=== PATIENT | male | born 2000 | race Caucasian/White ===

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

== ENCOUNTER 2020-04-24 08:59 | Day surgery (SDC) | payer OTHER ==
[2020-04-20 11:09] VITALS: BMI 35.9
[~2020-04-24 08:59] MED LIST: LACTATED RINGERS 1,000 ML IV SCH; LIDOCAINE 1% (10MG/ML) FOR IV START INTRADERMA PRN
[2020-04-24 09:16] VITALS: TEMP 97.8
[2020-04-24] MEDS ORDERED: LACTATED RINGERS 1,000 ML IV ONE ×2 (09:16)
[2020-04-24] MEDS ORDERED: PROPOFOL 10 MG/ML 20 ML VIAL IV ONE (09:56)
[2020-04-24] MEDS ORDERED: LIDOCAINE 1% INJ 10MG/ML (20 ML MDV) ONE (09:56)
--- NOTE | 2020-04-24 10:19 | P.PCN ---
Date of Procedure: 04/24/20 Procedure(s) Performed: PREOPERATIVE DIAGNOSIS: Change in bowel habits, diverticulitis POSTOPERATIVE DIAGNOSIS: Diverticulitis PROCEDURE: Colonoscopy ANESTHESIA: MAC SURGEON: Celso Harmon M.D. SPECIMENS: None ENDOSCOPIC PROCEDURE: The patient was placed on the endoscopy table in the left decubitus position. The Olympus colonoscope was inserted into the anus and passed under direct visualization to the base of the cecum. The appendiceal orifice was visualized. From that point the scope was slowly withdrawn inspecting all surfaces carefully. There were no neoplastic or polypoid lesions throughout the cecum, ascending, transverse, descending, sigmoid and rectum. In the sigmoid colon there was diverticulosis with some luminal narrowing. There were mild inflammatory changes consistent with subacute diverticulitis. The remainder of the rectum appeared normal. Digital rectal examination was normal. The patient was taken to the recovery room in stable condition per anesthesia guidelines. RECOMMENDATIONS: Resume diet. Recommend patient proceed with elective sigmoid resection.
[2020-04-24 10:44] VITALS: PULSE 69
[2020-04-24 10:53] VITALS: BP 115/76; RESP 20
== END 2020-04-24 11:11 | disposition home or self-care (01) ==
LOC: ORWHC2ENDO 08:59
PROVIDERS: ATTEND Surgery
DX: K57.32 Diverticulitis of large intestine without perforation or abscess without bleeding (principal); F32.9 Major depressive disorder, single episode, unspecified; F90.9 Attention-deficit hyperactivity disorder, unspecified type; F17.290 Nicotine dependence, other tobacco product, uncomplicated; Z87.19 Personal history of other diseases of the digestive system; Z91.041 Radiographic dye allergy status; Z91.030 Bee allergy status; Z88.0 Allergy status to penicillin; Z79.899 Other long term (current) drug therapy; Z79.2 Long term (current) use of antibiotics; Z79.52 Long term (current) use of systemic steroids; Z98.890 Other specified postprocedural states
CPT/HCPCS: 45378; J2001; J2704

== ENCOUNTER → 2022-02-01 | Outpatient (CLI) | payer BC ==
[2022-02-01 16:36] LABS: Anion Gap 8.8 mmol/L (10.00-18.00); Carbon Dioxide 28.2 mmol/L (20.0-27.5); Potassium 4.5 mmol/L (3.5-5.5)
[2022-02-01 16:48] LABS: Basophils # (A) 0.03 X 10*3/uL (0.00-0.10); Basophils % (A) 0.6 %; Eosinophils # (A) 0.15 X 10*3/uL (0.04-0.35); HCT 45.7 % (39.6-50.0); HGB 15.2 g/dL (13.0-17.0); Immature Grans, Automated 0.4 %; Lymphocytes # (A) 1.81 X 10*3/uL (0.90-5.00); Lymphocytes % (A) 36.1 %; MCH 29.4 pg (27.0-32.0); MCHC 33.3 g/dL (32.0-37.0); MCV 88.4 fL (80.0-97.0); Mean Platelet Volume 9.8 fL (9.5-12.2); Monocytes # (A) 0.37 X 10*3/uL (0.20-1.00); Monocytes % (A) 7.4 %; NRBC Per 100 WBC 0 /100 WBCS (0.0-0.0); Neutrophils # (A) 2.64 X 10*3/uL (1.80-7.70); Neutrophils % (A) 52.5 %; Platelet Count 257 X 10*3/uL (140-440); RBC 5.17 X 10*6/uL (4.40-5.60); RDW 12.4 % (11.5-14.5); WBC 5.02 X 10*3/uL (4.50-10.00)
== END | disposition home or self-care (01) ==
LOC: LABPAT 10:17
PROVIDERS: ATTEND Surgery
DX: Z01.812 Encounter for preprocedural laboratory examination (principal); K57.32 Diverticulitis of large intestine without perforation or abscess without bleeding
CPT/HCPCS: 80051; 85025

== ENCOUNTER 2022-02-03 07:13 | Inpatient (IN) | payer BC ==
[~2022-02-03 07:13] MED LIST changes: +ACETAMINOPHEN TAB 500 MG TAB PO PRN; +HEPARIN SODIUM,PORCINE/PF 5,000 UNIT/0.5 ML SYRINGE SQ PRN; -LACTATED RINGERS 1,000 ML IV SCH; -LIDOCAINE 1% (10MG/ML) FOR IV START INTRADERMA PRN; +metroNIDAZOLE-NS PMX 500 MG in SALINE 1 100ML.BAG IVPB PRN
[2022-02-03] MEDS ORDERED: LIDOCAINE 1% (10MG/ML) FOR IV START INTRADERMA PRN (07:43)
[2022-02-03] MEDS ORDERED: LACTATED RINGERS 1,000 ML IV SCH (07:43)
[2022-02-03 08:07] LABS: Glucose,Whole Blood 145 mg/dL (70-110)
[2022-02-03] MEDS: LACTATED RINGERS 1,000 ML IV SCH ×2 (08:09→09:46)
[2022-02-03] MEDS: ONDANSETRON 4 MG/2 ML VIAL IVP ONE ×2 (08:18→13:44)
[2022-02-03] MEDS: DEXAMETHASONE SOD PHOSPHATE 4 MG/ML 1 ML VIAL IV ONE ×2 (08:18→13:43)
[2022-02-03] MEDS ORDERED: fentaNYL (PF) 50 MCG/ML 2 ML AMP IVP ONE (08:51)
[2022-02-03] MEDS ORDERED: MIDAZOLAM 2 MG/2 ML VIAL IVP ONE ×2 (08:51→09:08)
--- NOTE | 2022-02-03 09:18 | P.GSHP ---
History of Present Illness H&P Date: 02/03/22 Chief Complaint: Chronic diverticulitis The 21-year-old male who has a chronic history of diverticulitis. Patient has had diverticulitis since age 13. Patient had multiple tacks diverticula is. He subsequently ended up having a laparoscopic sigmoid colectomy by another surgeon at [facility]. This was at approximately year ago. Patient has developed recurrent diverticulitis with abscess. Patient has a abscess the dome of the bladder. There is also question of colonic fistulas. Patient resents today for sigmoid resection. With end colostomy Past Medical History Additional Past Medical History / Comment(s): Diverticulitis., abscess on bladder & lower right quadrant in abdomen-has MRSA infection, recently in [facility] for, PICC line for vanco History of Any Multi-Drug Resistant Organisms: MRSA Date of last positivie culture/infection: abdomen MDRO Source:: December 2021 Past Surgical History: Bowel Resection Additional Past Surgical History / Comment(s): Colonoscopy., 08-13-20 sigmoidectomy @[facility], PICC line Past Anesthesia/Blood Transfusion Reactions: No Reported Reaction, Motion Sickness Additional Past Anesthesia/Blood Transfusion Reaction / Comment(s): HAD COLONOSCOPY AND DID WELL WITH SEDATION. Smoking Status: Vaper - Past Family History Mother Family Medical History: No Reported History Father Family Medical History: No Reported History Medications and Allergies Home Medications Medication Instructions Recorded Confirmed Type Augmentin(Unknown Dose) 1 tab PO BID 01/31/22 02/03/22 History Vancomycin(Unknown Dose) 1,250 mg IVPB TID 01/31/22 02/03/22 History Allergies Allergy/AdvReac Type Severity Reaction Status Date / Time bee pollen Allergy Unknown Verified 02/03/22 07:46 Iodinated Contrast Media AdvReac Vomiting Verified 02/03/22 07:46 [Iodinated Contrast Media - Oral and] Penicillins AdvReac Vomiting Verified 02/03/22 07:46 Surgical - Exam Vital Signs Temp Pulse Resp BP Pulse Ox 98.0 F 72 18 132/66 99 02/03/22 07:52 02/03/22 07:52 02/03/22 07:52 02/03/22 07:52 02/03/22 07:52 - General well developed, well nourished, no distress - Eyes PERRL - ENT normal pinna - Neck no masses - Respiratory normal expansion - Cardiovascular Rhythm: regular - Abdomen Mild left lower quadrant tenderness Abdomen: soft Results - Labs Abnormal Lab Results - Last 24 Hours (Table) 02/03/22 Range/Units 08:04 POC Glucose (mg/dL) 145 H (70-110) mg/dL Assessment and Plan Assessment: History of chronic diverticulitis with abscess. Patient will undergo sigmoid resection with end colostomy.
[2022-02-03] MEDS ORDERED: NALOXONE 0.4 MG/ML 1 ML VIAL IV PRN (09:19)
--- NOTE | 2022-02-03 09:23 | P.ANPRN ---
Procedure Note - Anesthesia - Epidural/Spinal Epidural Time Out Performed: Yes Date of Procedure: 02/03/22 Procedure Start Time: 08:50 Procedure Stop Time: 09:12 Location of Patient: PreOp Indication: Acute Post-Operative Pain Sedation Type: Sedate with meaningful contact maintained Preparation: Sterile Dressing Position: Sitting Catheter: Indwelling Needle Guage: 18 Injectate: Test Dose Lidocaine1.5% w/1:200,000 epi (3cc without response) Blood Aspirated: No Pain Paresthesia on Injection Noted: No Events: Uneventful and Well Tolerated
[2022-02-03] MEDS ORDERED: ROCURONIUM 10 MG/ML (5 ML VIAL) IV ONE (09:40)
[2022-02-03] MEDS ORDERED: HYDROmorphone (PF) 1 MG/ML ONE (09:40)
[2022-02-03] MEDS ORDERED: HEPARIN SODIUM,PORCINE 5,000 UNIT/ML 1 ML VIAL ONE (09:40)
[2022-02-03] MEDS ORDERED: MIDAZOLAM 2 MG/2 ML VIAL ONE (09:40)
[2022-02-03] MEDS ORDERED: NEOSTIGMINE 1 MG/ML 10 ML VIAL ONE (09:40)
[2022-02-03] MEDS ORDERED: KETAMINE 10 MG/ML 20 ML VIAL ONE (09:40)
[2022-02-03] MEDS ORDERED: SUCCINYLCHOLINE CHLORIDE 200 MG/10 ML VIAL IV ONE (09:40)
[2022-02-03] MEDS ORDERED: GLYCOPYRROLATE 0.2 MG/ML 2 ML VIAL ONE (09:40)
[2022-02-03] MEDS ORDERED: LIDOCAINE 2% INJ 20 MG/ML (2 ML VIAL) ONE (09:40)
[2022-02-03] MEDS ORDERED: fentaNYL (PF) 50 MCG/ML 2 ML AMP ONE (09:40)
[2022-02-03] MEDS ORDERED: PROPOFOL 10 MG/ML 20 ML VIAL IV ONE (09:40)
[2022-02-03] MEDS ORDERED: LACTATED RINGERS 1,000 ML IV ONE (10:31)
[2022-02-03] MEDS: HYDROmorphone 0.5 MG/0.5 ML SYRINGE IVP PRN ×2 (11:38→11:58)
[2022-02-03] MEDS: ROPIVACAINE 250 MG, HYDROMORPHONE (PF) 5 MG in SODIUM CHLORIDE 0.9% 200 ML EPIDURAL PRN (12:40)
[2022-02-03] MEDS ORDERED: ONDANSETRON 4 MG/2 ML VIAL IVP PRN (13:47)
[2022-02-03] MEDS ORDERED: HYDROmorphone 0.5 MG/0.5 ML SYRINGE IVP STA (14:00)
[2022-02-03] MEDS ORDERED: diphenhydrAMINE 50 MG/ML 1 ML VIAL IVP STA (14:09)
--- NOTE | 2022-02-03 14:45 | P.CONS ---
History of Present Illness - Reason for Consult Consult date: 02/03/22 Medical management - Chief Complaint Colectomy with colostomy bag - History of Present Illness 21-year-old male with a known history of diverticulitis since he was 13, status post bowel resection, sigmoidectomy at [facility] in August 2020, abscess on bladder and lower right quadrant pain abdomen with MRSA and recently at [facility] and was given antibiotics in the form of vancomycin via PICC line. Patient is having recurrent diverticulitis with abscess. Patient was admitted to hospital for sigmoid resection with colostomy placement. Patient tolerated the procedure well. Currently postoperative day 0. Patient arrived to the medical floor. Patient states that he has bilateral lower extremity numbness. No complaints of chest pain or shortness of breath. No nausea vomiting abdominal pain or diarrhea. Review of Systems Constitutional: Patient denies any fever or chills . No generalized weakness or weight loss. Abdomen: Patient denied nausea vomiting and diarrhea and abdominal pain. Cardiovascular: Patient denies any chest pain or short of breath no palpitations. Respiratory: patient denied any cough is from production. No shortness of breath Neurologic: Patient denied any numbness or tingling headache. Musculoskeletal: Patient denies any complaints of joint swelling or deformity. Skin: Negative Psychiatric: Negative Endocrine: No heat or cold intolerance. No recent weight gain. Genitourinary: No dysuria or hematuria. All other 14 point ROS negative except the above Past Medical History Additional Past Medical History / Comment(s): Diverticulitis., abscess on bladder & lower right quadrant in abdomen-has MRSA infection, recently in [facility] for, PICC line for vanco History of Any Multi-Drug Resistant Organisms: MRSA Year Discovered:: abdomen MDRO Source:: December 2021 Past Surgical History: Bowel Resection Additional Past Surgical History / Comment(s): Colonoscopy., 08-13-20 sigmoidectomy @[facility], PICC line Past Anesthesia/Blood Transfusion Reactions: No Reported Reaction, Motion Sickness Additional Past Anesthesia/Blood Transfusion Reaction / Comm: HAD COLONOSCOPY AND DID WELL WITH SEDATION. Smoking Status: Vaper - Past Family History Mother Family Medical History: No Reported History Father Family Medical History: No Reported History Medications and Allergies Home Medications Medication Instructions Recorded Confirmed Type Augmentin(Unknown Dose) 1 tab PO BID 01/31/22 02/03/22 History Vancomycin(Unknown Dose) 1,250 mg IVPB TID 01/31/22 02/03/22 History Allergies Allergy/AdvReac Type Severity Reaction Status Date / Time bee pollen Allergy Unknown Verified 02/03/22 07:46 Iodinated Contrast Media AdvReac Vomiting Verified 02/03/22 07:46 [Iodinated Contrast Media - Oral and] Penicillins AdvReac Vomiting Verified 02/03/22 07:46 Physical Exam Vitals: Vital Signs Temp Pulse Pulse Resp BP Pulse Ox 02/03/22 14:00 98.5 F 84 18 142/76 98 02/03/22 12:40 78 16 140/66 97 02/03/22 12:25 78 16 141/64 96 02/03/22 12:10 80 16 131/67 97 02/03/22 11:55 73 16 137/64 100 02/03/22 11:40 71 16 155/72 100 02/03/22 11:28 75 16 157/68 100 02/03/22 11:13 99 F 96 12 141/65 96 02/03/22 09:43 65 18 155/89 99 02/03/22 09:15 60 16 126/72 99 02/03/22 07:52 98.0 F 72 18 132/66 99 Intake and Output 02/02/22 02/03/22 02/03/22 22:59 06:59 14:59 Intake Total 1550.233 Output Total 200 Balance 1350.233 Intake: IV 1550 Intake, IV Titration 0.233 Amount Ropivacaine 250 mg 0.233 Hydromorphone (Pf) 5 mg In Sodium Chloride 0.9% 200 ml @ Per Protocol EPIDURAL .Q0M PRN Rx#: [id number] Output: Urine 150 Estimated Blood Loss 50 Other: Weight 88.3 kg PHYSICAL EXAMINATION: Patient is lying in the bed comfortably, no acute distress, awake alert and oriented.. HEENT: Normocephalic. Neck is supple. Pupils reactive. Nostrils clear. Oral cavity is moist. Neck reveals no JVD, carotid bruits, or thyromegaly. CHEST EXAMINATION: Trachea is central. Symmetrical expansion. Lung damon clear to auscultation and percussion. CARDIAC: Normal S1, S2 with no gallops. No murmurs ABDOMEN: Soft. Bowel sounds diminished. Mild tenderness. Colostomy bag in place.. No organomegaly. No abdominal bruits. Extremities: reveal no edema. No clubbing or cyanosis Neurologically awake, alert, oriented x3 with well-coordinated movements. No focal deficits noted Skin: No rash or skin lesions. Psychiatric: Coperative. Nonsuicidal, Musculoskeletal: No joint swelling or deformity. Normal range of motion. Results Labs: Abnormal Lab Results - Last 24 Hours (Table) 02/03/22 Range/Units 08:04 POC Glucose (mg/dL) 145 H (70-110) mg/dL Assessment and Plan Assessment: Status post sigmoid colectomy with colostomy bag placement postoperative day 0 Recurrent diverticulitis with abscess on the dome of the bladder and abdominal abscess with MRSA recently s/p vancomycin via PICC line. History of sigmoidectomy at [facility] in August 2020 Recurrent diverticulitis since age 13 GI and DVT prophylaxis Plan: Patient is currently status post sigmoidectomy and colostomy placement continue with pain management and bowel regimen. IV hydration. Follow-up CBC and BMP tomorrow. Encourage incentive spirometry and DVT prophylaxis. We will follow closely and further recommendations based on clinical course.. Time with Patient: Greater than 30
[2022-02-03] MEDS: DEXTROSE 5%-0.45% NACL 1,000 ML IV SCH ×2 (14:53→21:20)
[2022-02-04] MEDS: ROPIVACAINE 250 MG, HYDROMORPHONE (PF) 5 MG in SODIUM CHLORIDE 0.9% 200 ML EPIDURAL PRN ×2 (04:42→16:17)
--- NOTE | 2022-02-04 07:01 | P.PN ---
Progress Note - Text Progress Note Date: 02/04/22 Postop day 1 from exploratory laparotomy, epidural catheter inserted for postop pain control. Epidural solution: Ropivacaine 0.2% with Dilaudid 20 mcgs/ml running at 9 mL an hour. Patient pain is well controlled with visual analog score of 4/10. No nausea vomiting, itching, or weakness s in the legs or headache, but slight numbness in the right leg reported by the patient. Plan: To continue the epidural infusion at the current rate.
[2022-02-04] MEDS: DEXTROSE 5%-0.45% NACL 1,000 ML IV SCH ×3 (07:04→23:18)
[2022-02-04] MEDS: LACTATED RINGERS 1,000 ML IV SCH (08:04)
[2022-02-04] MEDS: PANTOPRAZOLE 40 MG/10 ML VIAL IVP SCH (08:04)
[2022-02-04] MEDS: HEPARIN SODIUM,PORCINE/PF 5,000 UNIT/0.5 ML SYRINGE SQ SCH ×2 (08:04→21:46)
[2022-02-04 10:43] LABS: Basophils # (A) 0.02 X 10*3/uL (0.00-0.10); Basophils % (A) 0.2 %; Eosinophils # (A) 0.04 X 10*3/uL (0.04-0.35); Eosinophils % (A) 0.5 %; HCT 40.6 % (39.6-50.0); HGB 14.1 g/dL (13.0-17.0); Immature Grans, Automated 0.1 %; Lymphocytes # (A) 2.24 X 10*3/uL (0.90-5.00); MCH 30.4 pg (27.0-32.0); MCHC 34.7 g/dL (32.0-37.0); MCV 87.5 fL (80.0-97.0); Mean Platelet Volume 9.6 fL (9.5-12.2); Monocytes # (A) 0.75 X 10*3/uL (0.20-1.00); NRBC Per 100 WBC 0 /100 WBCS (0.0-0.0); Neutrophils # (A) 5.25 X 10*3/uL (1.80-7.70); Neutrophils % (A) 63.2 %; Platelet Count 225 X 10*3/uL (140-440); RBC 4.64 X 10*6/uL (4.40-5.60); RDW 12.5 % (11.5-14.5); WBC 8.31 X 10*3/uL (4.50-10.00)
[2022-02-04 12:27] LABS: African American GFR (CKD) 123.3 (60.0-200.0); Anion Gap 14.1 mmol/L (10.00-18.00); BUN/Creat Ratio 8.1 Ratio (12.00-20.00); Blood Urea Nitrogen 8.1 mg/dL (9.0-27.0); Calcium 8.6 mg/dL (8.7-10.3); Carbon Dioxide 23.9 mmol/L (20.0-27.5); Non-African American GFR(CKD) 106.4 (60.0-200.0); Potassium 4.5 mmol/L (3.5-5.5)
--- NOTE | 2022-02-04 13:18 | P.PN ---
Subjective Progress Note Date: 02/04/22 CHIEF COMPLAINT: Diverticulitis history HISTORY OF PRESENT ILLNESS: Postoperative day #1. Status post colectomy with colostomy. Patient has epidural for pain control. He denies any nausea or vomiting. He is reporting his pain about a 6 out of 10. Afebrile. Urine output adequate. WBC is 8.31 Hgb 14.1 platelets 225 sodium is 139 potassium is 4.5 creatinine 1.0 Patient seen and examined with Dr. Khalil PHYSICAL EXAM: VITAL SIGNS: Reviewed. GENERAL: Well-developed in no acute distress. HEENT: No sclera icterus. Extraocular movements grossly intact. Moist buccal mucosa. Head is atraumatic, normocephalic. ABDOMEN: Soft. Incisional dressing with an area of saturation. Colostomy on the left with beefy red stoma. Sanguinous drainage noted in the colostomy NEUROLOGIC: Alert and oriented. Cranial nerves II through XII grossly intact. ASSESSMENT: 1. Diverticulitis status post colectomy with colostomy PLAN: -Continue epidural for pain control -Keep patient nothing by mouth -Continue IV fluids -Patient had been on antibiotics prior to admission. We'll consult infectious disease for antibiotic recommendations -Change incisional dressing to Optifoam silver -Encouraged patient to use incentive spirometer -Encouraged patient to increase activity level -GI prophylaxis Protonix and DVT prophylaxis subcu heparin and SCDs Physician Pinking Sewing Machine Operator note has been reviewed by physician. Signing provider agrees with the documented findings, assessment, and plan of care. Objective - Vital Signs Vital signs: Vital Signs Temp 98.9 F 02/04/22 07:47 Pulse 92 02/04/22 07:47 Resp 17 02/04/22 07:47 BP 112/64 02/04/22 07:47 Pulse Ox 99 02/04/22 08:58 FiO2 Intake & Output 02/03/22 02/04/22 02/04/22 18:59 06:59 18:59 Intake Total 1550.233 119.333 66.3 Output Total 850 1600 Balance 700.233 -1480.667 66.3 Weight 88.3 kg Intake: IV 1550 Intake, IV Titration 0.233 119.333 66.3 Amount Ropivacaine 250 mg 0.233 119.333 66.3 Hydromorphone (Pf) 5 mg In Sodium Chloride 0.9% 200 ml @ Per Protocol EPIDURAL .Q0M PRN Rx#: [id number] Output: Urine 800 1600 Estimated Blood Loss 50 Other: Voiding Method Indwelling Catheter Indwelling Catheter Indwelling Catheter - Labs CBC & Chem 7: 02/04/22 06:39 02/04/22 06:39 Labs: Abnormal Lab Results - Last 24 Hours (Table) 02/04/22 Range/Units 06:39 BUN 8.1 L (9.0-27.0) mg/dL BUN/Creatinine Ratio 8.10 L (12.00-20.00) Ratio Calcium 8.6 L (8.7-10.3) mg/dL
[2022-02-04] MEDS ORDERED: VANCOMYCIN IV PER PHARMACY 1 EACH MISC MISCELLANE PRN (14:02)
[2022-02-04] MEDS: VANCOMYCIN 1,500 MG in SODIUM CHLORIDE 0.9% 250 ML IVPB SCH ×2 (15:51→23:19)
[2022-02-04] MEDS ORDERED: metroNIDAZOLE 500 MG TAB PO SCH (16:00)
[2022-02-04] MEDS: metroNIDAZOLE-NS PMX 500 MG in SALINE 1 100ML.BAG IVPB SCH (18:17)
[2022-02-05] MEDS: metroNIDAZOLE-NS PMX 500 MG in SALINE 1 100ML.BAG IVPB SCH ×3 (02:48→16:30)
[2022-02-05] MEDS: VANCOMYCIN 1,500 MG in SODIUM CHLORIDE 0.9% 250 ML IVPB SCH ×2 (07:56→17:36)
[2022-02-05] MEDS: PANTOPRAZOLE 40 MG/10 ML VIAL IVP SCH (07:56)
[2022-02-05] MEDS: HEPARIN SODIUM,PORCINE/PF 5,000 UNIT/0.5 ML SYRINGE SQ SCH ×2 (07:57→20:33)
[2022-02-05 07:59] LABS: African American GFR (CKD) >90 (>60 ml/min/1.73 sqM); Non-African American GFR(CKD) >90 (>60 ml/min/1.73 sqM)
[2022-02-05] MEDS ORDERED: HYDROmorphone 0.5 MG/0.5 ML SYRINGE IVP PRN (08:05)
--- NOTE | 2022-02-05 08:09 | P.PN ---
Progress Note - Text Progress Note Date: 02/05/22 (6038) Anesthesia Postop day #2 Status post colectomy with colostomy with epidural day #3 Patient seen and examined. Doing well moderate pain with movement. VAS 6 out of 10. Denies nausea vomiting or pruritus. Ropivacaine 0.1% with Dilaudid 20 mcg/mL at 10 mL an hour. Objective: Vital signs reviewed Lungs: Good chest excursion Abdomen: Appears nondistended Other: Epidural Site Intact without induration. Dressing intact Neuro: Mild motor block of the right thigh. Instructed to watch for growing numbness or weakness. Sensory within normal limits. Assessment: Status post colectomy with colostomy postop day #2 Plan: Continue current care with your medical management. Anticipate discontinued tomorrow.
[2022-02-05] MEDS: DEXTROSE 5%-0.45% NACL 1,000 ML IV SCH ×3 (09:04→20:33)
--- NOTE | 2022-02-05 11:40 | P.PN ---
Subjective Progress Note Date: 02/05/22 CHIEF COMPLAINT: Diverticulitis history HISTORY OF PRESENT ILLNESS: Postoperative day #2. Status post colectomy with colostomy. Patient has epidural for pain control. Patient rates his pain about a 6 out of 10. Anesthesia did add Dilaudid 0.5 mg IV for breakthrough pain. Patient did have some dizziness with getting up to the side of the bed yesterday. He denies any nausea or vomiting. Afebrile. Patient seen by infectious disease service Patient seen and examined with Dr. Khalil. PHYSICAL EXAM: VITAL SIGNS: Reviewed. GENERAL: Well-developed in no acute distress. HEENT: No sclera icterus. Extraocular movements grossly intact. Moist buccal mucosa. Head is atraumatic, normocephalic. ABDOMEN: Soft. Incisional dressing clean dry and intact. Colostomy on the left with stoma dusky on the upper portion. Sanguinous drainage noted in the colostomy NEUROLOGIC: Alert and oriented. Cranial nerves II through XII grossly intact. ASSESSMENT: 1. Diverticulitis status post colectomy with colostomy PLAN: -Continue epidural for pain control -Advance diet to clear liquids -Continue to monitor stoma -Continue IV fluids -Antibiotics per infectious disease -Encouraged patient to use incentive spirometer -Encouraged patient to increase activity level -GI prophylaxis Protonix and DVT prophylaxis subcu heparin and SCDs Physician Field Marketing Director note has been reviewed by physician. Signing provider agrees with the documented findings, assessment, and plan of care. Objective - Vital Signs Vital signs: Vital Signs Temp 98.7 F 02/05/22 08:00 Pulse 74 02/05/22 08:00 Resp 18 02/05/22 08:00 BP 105/68 02/05/22 08:00 Pulse Ox 95 02/05/22 08:12 FiO2 Intake & Output 02/04/22 02/05/22 02/05/22 18:59 06:59 18:59 Intake Total 108.467 Output Total 900 2150 Balance -791.533 -2150 Intake: Intake, IV Titration 108.467 Amount Ropivacaine 250 mg 108.467 Hydromorphone (Pf) 5 mg In Sodium Chloride 0.9% 200 ml @ Per Protocol EPIDURAL .Q0M PRN Rx#: [id number] Output: Urine 900 2150 Uretheral (Dorado) 800 Other: Voiding Method Indwelling Catheter Indwelling Catheter - Labs CBC & Chem 7: 02/04/22 06:39 02/05/22 07:06 Labs: Abnormal Lab Results - Last 24 Hours (Table) 02/04/22 Range/Units 06:39 BUN 8.1 L (9.0-27.0) mg/dL BUN/Creatinine Ratio 8.10 L (12.00-20.00) Ratio Calcium 8.6 L (8.7-10.3) mg/dL
[2022-02-05] MEDS ORDERED: VANCOMYCIN TROUGH DUE 1 EACH MISC MISCELLANE ONE (14:00)
--- NOTE | 2022-02-05 14:10 | XR ---
EXAMINATION TYPE: XR chest 1V portable DATE OF EXAM: 02/05/2022 10:52 AM COMPARISON: None TECHNIQUE: XR chest 1V portable Portable AP radiograph of the chest. CLINICAL INDICATION:Male, 21 years old with history of fevers; FINDINGS: Lungs/Pleura: There is no evidence of pleural effusion, focal consolidation, or pneumothorax. Pulmonary vascularity: Unremarkable. Heart/mediastinum: Cardiomediastinal silhouette is unremarkable. Musculoskeletal: No acute osseous pathology. IMPRESSION: No acute cardiopulmonary disease/process.
[2022-02-05] MEDS: ROPIVACAINE 250 MG, HYDROMORPHONE (PF) 5 MG in SODIUM CHLORIDE 0.9% 200 ML EPIDURAL PRN (14:20)
[2022-02-05 18:45] LABS: Appearance,Urine Clear (Clear); Bilirubin,Urine Negative (Negative); Blood,Urine Negative (Negative); Color,Urine Colorless; Glucose,Urine (UA) Negative (Negative); Ketones,Urine Negative (Negative); Leukocyte Esterase,Urine Negative (Negative); Nitrite,Urine Negative (Negative); Protein,Urine Negative (Negative); Specific Gravity,Urine 1.004 (1.001-1.035); Urobilinogen,Urine <2.0 mg/dL (<2.0)
--- NOTE | 2022-02-05 20:17 | PN ---
PROGRESS NOTE SUBJECTIVE: This is a 21-year-old gentleman, who was admitted after sigmoid colectomy and colostomy. He is being closely monitored. No chest pain. No palpitation. No fever. OBJECTIVE: VITAL SIGNS: Pulse 92, blood pressure 112/66, respirations 17. CHEST: Clear to auscultation. CARDIOVASCULAR: S1 and S2. ABDOMEN: Soft. Status post surgery. LABORATORY DATA: Reviewed. ASSESSMENT: 1. Status post sigmoid colectomy with colostomy. 2. Recurrent diverticulitis. 3. Multiple medical issues. RECOMMENDATIONS: Continue current management and symptomatic treatment. Incentive spirometer. DVT prophylaxis. Closely follow with Surgery and Pain Management. Further recommendations to follow. MMODL / IJN: [id number] /
--- NOTE | 2022-02-05 23:42 | P.CONS ---
History of Present Illness - Reason for Consult Consult date: 02/04/22 - History of Present Illness patient is a 21-year male with a past medical history significant for diverticulitis in this patient did have initial surgery at [facility] patient seem to have a problem postoperatively with intra-abdominal abscess with recent admission at [facility] with a CT-guided drainage did grew MRSA and the patient has been treated with IV vancomycin and Flagyl however the patient did have a worsening of the CT finding for the patient was referred to Dr. Crowley patient was electively admitted to the hospital in this patient who is s/p laparotomy and diverting colostomy operative report is currently pending however no mention of any intra-abdominal abscess and no wall culture done patient is currently not on antibiotics infectious disease was consulted for further management of antibiotic therapy, patient currently denies having any fever or any chills he is breathing comfortably has been complaining of abdominal pain mostly lower abdominal area describing it to be sharp 6-7 out of 10 and no radiation denies any nausea no vomiting Past Medical History Additional Past Medical History / Comment(s): Diverticulitis., abscess on valeria dder & lower right quadrant in abdomen-has MRSA infection, recently in [facility] for, PICC line for vanco History of Any Multi-Drug Resistant Organisms: MRSA Year Discovered:: abdomen MDRO Source:: December 2021 Past Surgical History: Bowel Resection Additional Past Surgical History / Comment(s): Colonoscopy., 08-13-20 sigmoidectomy @[facility], PICC line Past Anesthesia/Blood Transfusion Reactions: No Reported Reaction, Motion Sickness Additional Past Anesthesia/Blood Transfusion Reaction / Comm: HAD COLONOSCOPY AND DID WELL WITH SEDATION. Smoking Status: Vaper - Past Family History Mother Family Medical History: No Reported History Father Family Medical History: No Reported History Medications and Allergies Home Medications Medication Instructions Recorded Confirmed Type Augmentin(Unknown Dose) 1 tab PO BID 01/31/22 02/03/22 History Vancomycin(Unknown Dose) 1,250 mg IVPB TID 01/31/22 02/03/22 History Allergies Allergy/AdvReac Type Severity Reaction Status Date / Time bee pollen Allergy Unknown Verified 02/03/22 07:46 Iodinated Contrast Media AdvReac Vomiting Verified 02/03/22 07:46 [Iodinated Contrast Media - Oral and] Penicillins AdvReac Vomiting Verified 02/03/22 07:46 Physical Exam Vitals: Vital Signs Temp Pulse Resp BP Pulse Ox 02/04/22 08:58 99 02/04/22 07:47 98.9 F 92 17 112/64 100 02/04/22 02:08 98.4 F 86 20 117/62 100 02/03/22 20:40 98.7 F 77 18 103/54 98 02/03/22 20:00 20 Intake and Output 02/03/22 02/04/22 02/04/22 22:59 06:59 14:59 Intake Total 119.333 66.3 Output Total 650 1600 Balance -650 -1480.667 66.3 Intake: Intake, IV Titration 119.333 66.3 Amount Ropivacaine 250 mg 119.333 66.3 Hydromorphone (Pf) 5 mg In Sodium Chloride 0.9% 200 ml @ Per Protocol EPIDURAL .Q0M PRN Rx#: [id number] Output: Urine 650 1600 Other: Voiding Method Indwelling Catheter Indwelling Catheter Results CBC & Chem 7: 02/04/22 06:39 02/05/22 07:06 Labs: Abnormal Lab Results - Last 24 Hours (Table) 02/04/22 Range/Units 06:39 BUN 8.1 L (9.0-27.0) mg/dL BUN/Creatinine Ratio 8.10 L (12.00-20.00) Ratio Calcium 8.6 L (8.7-10.3) mg/dL Assessment and Plan Plan: 1patient with a complicated history of diverticulitis requiring surgery followed by complication with intra-abdominal abscess culture has been positive for MRSA failing conservative therapy including a CT-guided drainage in this patient who is status post laparotomy and diverting colostomy no clear documentation of any residual intra-abdominal abscess or fistula formation the operative report is currently pending. 2we will empirically cover the patient with vancomycin Rocephin and Flagyl while inpatient. 3if the patient spike any fever to obtain cultures. We will follow on clinical condition and cultures to further adjust medication if needed Thank you for this consultation will follow this patient along with you Time with Patient: Greater than 30
--- NOTE | 2022-02-05 23:44 | P.PN ---
Subjective Progress Note Date: 02/05/22 Principal diagnosis: Complicated diverticulitis with intra-abdominal abscess Patient is a 21-year male with a past medical he significant for diverticulitis status post sigmoid colectomy with postop complication of intra- abdominal abscess subsequently admitted to hospital status post laparotomy and diverting colostomy. On today's evaluation that is 02/05/2022, patient denies having any fever or any chills patient is breathing comfortably abdominal pain has slightly decreased in intensity no nausea or vomiting has been tolerating his diet Objective - Vital Signs Vital signs: Vital Signs Temp 98.7 F 02/05/22 08:00 Pulse 74 02/05/22 08:00 Resp 18 02/05/22 08:00 BP 105/68 02/05/22 08:00 Pulse Ox 95 02/05/22 08:12 FiO2 Intake & Output 02/04/22 02/05/22 02/05/22 18:59 06:59 18:59 Intake Total 108.467 220.5 Output Total 900 2150 Balance -791.533 -2150 220.5 Intake: Intake, IV Titration 108.467 220.5 Amount Ropivacaine 250 mg 108.467 220.5 Hydromorphone (Pf) 5 mg In Sodium Chloride 0.9% 200 ml @ Per Protocol EPIDURAL .Q0M PRN Rx#: [id number] Output: Urine 900 2150 Uretheral (Dorado) 800 Other: Voiding Method Indwelling Catheter Indwelling Catheter Indwelling Catheter - Exam GENERAL DESCRIPTION: Young male lying in bed in no distress RESPIRATORY SYSTEM: Unlabored breathing , decreased breath sounds at bases HEART: S1 S2 regular rate and rhythm , ABDOMEN: Soft , no tenderness EXTREMITIES: No edema feet - Labs CBC & Chem 7: 02/04/22 06:39 02/05/22 07:06 Assessment and Plan (1) Sigmoid diverticulitis Current Visit: No Status: Acute Code(s): K57.32 - DVTRCLI OF LG INT W/O PERFORATION OR ABSCESS W/O BLEEDING SNOMED Code(s): 011948475 Plan: 1patient with a complicated history of diverticulitis requiring surgery followed by complication with intra-abdominal abscess culture has been positive for MRSA failing conservative therapy including a CT-guided drainage in this patient who is status post laparotomy and diverting colostomy no clear documentation of any residual intra-abdominal abscess or fistula formation the operative report is currently pending. 2patient will continue with vancomycin Rocephin and Flagyl while inpatient Mother at the bedside questions and concerns were answered Time with Patient: Less than 30
[2022-02-06] MEDS: VANCOMYCIN 1,500 MG in SODIUM CHLORIDE 0.9% 250 ML IVPB SCH ×2 (00:11→09:33)
[2022-02-06] MEDS: metroNIDAZOLE-NS PMX 500 MG in SALINE 1 100ML.BAG IVPB SCH ×3 (01:21→17:07)
--- NOTE | 2022-02-06 06:04 | PN ---
PROGRESS NOTE SUBJECTIVE: This is a 21-year-old gentleman who was admitted after diverticulitis surgery. He is being closely monitored. No chest pain. No palpitations. No fever. PHYSICAL EXAMINATION: VITAL SIGNS: Pulse 74, blood pressure 105/60, respirations 18. CHEST: Clear to auscultation. CARDIOVASCULAR: S1 and S2. ABDOMEN: Soft, status post surgery. NERVOUS SYSTEM: No focal deficits. LABS: Reviewed. ASSESSMENT: 1. Status post sigmoid colectomy with colostomy. 2. Recurrent diverticulitis. RECOMMENDATIONS AND DISCUSSION: This is a 21-year-old gentleman who presented after surgery. At this time, I recommend to continue current management and symptomatic treatment. DVT prophylaxis. Incentive spirometry. Antibiotics. Infectious Disease being evaluated. Cultures are negative so far. Further recommendations to follow. MMODL / IJN: [id number] /
[2022-02-06] MEDS: HEPARIN SODIUM,PORCINE/PF 5,000 UNIT/0.5 ML SYRINGE SQ SCH ×2 (07:38→19:47)
[2022-02-06] MEDS: PANTOPRAZOLE 40 MG/10 ML VIAL IVP SCH (07:46)
--- NOTE | 2022-02-06 08:59 | P.PN ---
Progress Note - Text Date: 02/06/2022 Time: 7:07 The patient is status post, colectomy, postoperative day number 3. The patient has no complaints of nausea vomiting or headache. The patient does not complain of any lower extremity numbness or weakness. The epidural is running at 10 mL per hour. VAS 1-2-10.The epidural will be discontinued this a.m. The patient's pain meds will be provided to him by the service.
[2022-02-06 10:38] LABS: Basophils # (A) 0.01 X 10*3/uL (0.00-0.10); Basophils % (A) 0.2 %; Eosinophils # (A) 0.14 X 10*3/uL (0.04-0.35); HCT 40.3 % (39.6-50.0); Immature Grans, Automated 0.2 %; Lymphocytes # (A) 1.32 X 10*3/uL (0.90-5.00); MCH 30.2 pg (27.0-32.0); MCHC 34.7 g/dL (32.0-37.0); Mean Platelet Volume 10.1 fL (9.5-12.2); Monocytes # (A) 0.49 X 10*3/uL (0.20-1.00); Monocytes % (A) 10.4 %; NRBC Per 100 WBC 0 /100 WBCS (0.0-0.0); Neutrophils # (A) 2.74 X 10*3/uL (1.80-7.70); Neutrophils % (A) 58.2 %; Platelet Count 211 X 10*3/uL (140-440); RBC 4.63 X 10*6/uL (4.40-5.60); RDW 12.1 % (11.5-14.5); WBC 4.71 X 10*3/uL (4.50-10.00)
[2022-02-06] MEDS ORDERED: ACETAMINOPHEN TAB 500 MG TAB PO PRN (10:44)
[2022-02-06 10:56] LABS: African American GFR (CKD) 147.5 (60.0-200.0); Albumin 3.7 g/dL (3.8-4.9); Albumin/Globulin Ratio 1.72 (1.60-3.17); Anion Gap 9.5 mmol/L (10.00-18.00); BUN/Creat Ratio 8.73 Ratio (12.00-20.00); Blood Urea Nitrogen 6.9 mg/dL (9.0-27.0); C Reactive Protein 5.8 mg/dL (0.00-0.80); Calcium 8.4 mg/dL (8.7-10.3); Carbon Dioxide 26.4 mmol/L (20.0-27.5); Globulin 2.2 g/dL (1.6-3.3); Non-African American GFR(CKD) 127.3 (60.0-200.0); Potassium 4.1 mmol/L (3.5-5.5); Total Bilirubin 0.7 mg/dL (0.30-1.20); Total Protein 5.9 g/dL (6.2-8.2)
[2022-02-06] MEDS: KETOROLAC 15 MG/ML 1 ML VIAL IVP SCH ×2 (11:02→17:08)
[2022-02-06] MEDS: HYDROmorphone 1 MG/ML 1 ML SYRINGE IVP PRN ×2 (14:49→19:46)
--- NOTE | 2022-02-06 14:57 | P.PN ---
Subjective Progress Note Date: 02/06/22 CHIEF COMPLAINT: Diverticulitis history HISTORY OF PRESENT ILLNESS: Postoperative day #3. Status post colectomy with colostomy. Epidural and Dorado catheter scheduled to be discontinued today. Patient denies any nausea vomiting. He is having some flatus from his ostomy. He tolerated clear liquids. He had dizziness with standing to get bedside chair. He reports that his pain is about the same about 6 out of 10. Afebrile. WBC is 4.71 Hgb is 14 and platelets 211 creatinine 0.8 Patient seen and examined with Dr. Khalil. PHYSICAL EXAM: VITAL SIGNS: Reviewed. GENERAL: Well-developed in no acute distress. HEENT: No sclera icterus. Extraocular movements grossly intact. Moist buccal mucosa. Head is atraumatic, normocephalic. ABDOMEN: Soft. Incisional dressing clean dry and intact. Colostomy on the left and stoma is less dusky. Serosanguineous drainage noted in the colostomy NEUROLOGIC: Alert and oriented. Cranial nerves II through XII grossly intact. ASSESSMENT: 1. Diverticulitis status post colectomy with colostomy PLAN: -Discontinue epidural Dorado catheter -Toradol and Tylenol added for pain control -Advance diet to full liquids -Decreased IV fluids to 75 mL per hour -Antibiotics per infectious disease -Encouraged patient to use incentive spirometer -Encouraged patient to increase activity level -GI prophylaxis Protonix and DVT prophylaxis subcu heparin and SCDs Physician Insurance Verification Rep note has been reviewed by physician. Signing provider agrees with the documented findings, assessment, and plan of care. Objective - Vital Signs Vital signs: Vital Signs Temp 98.6 F 02/06/22 08:00 Pulse 74 02/06/22 08:00 Resp 16 02/06/22 08:00 BP 115/69 02/06/22 08:00 Pulse Ox 97 02/06/22 08:00 FiO2 Intake & Output 02/05/22 02/06/22 02/06/22 18:59 06:59 18:59 Intake Total 220.5 600 Output Total 2100 1500 1100 Balance -1879.5 -900 -1100 Intake: Intake, IV Titration 220.5 Amount Ropivacaine 250 mg 220.5 Hydromorphone (Pf) 5 mg In Sodium Chloride 0.9% 200 ml @ Per Protocol EPIDURAL .Q0M PRN Rx#: [id number] Oral 600 Output: Urine 2100 1500 1100 Uretheral (Dorado) 1100 Other: Voiding Method Indwelling Catheter Indwelling Catheter Indwelling Catheter - Labs CBC & Chem 7: 02/06/22 07:12 02/06/22 07:12 Labs: Abnormal Lab Results - Last 24 Hours (Table) 02/06/22 Range/Units 07:12 Anion Gap 9.50 L (10.00-18.00) mmol/L BUN 6.9 L (9.0-27.0) mg/dL BUN/Creatinine Ratio 8.73 L (12.00-20.00) Ratio Calcium 8.4 L (8.7-10.3) mg/dL C-Reactive Protein 5.80 H (0.00-0.80) mg/dL Total Protein 5.9 L (6.2-8.2) g/dL Albumin 3.7 L (3.8-4.9) g/dL
[2022-02-06] MEDS: VANCOMYCIN 1,750 MG in SODIUM CHLORIDE 0.9% 500 ML 500 ML IVPB SCH (17:08)
[2022-02-06] MEDS: DEXTROSE 5%-0.45% NACL 1,000 ML IV SCH ×2 (17:11)
[2022-02-07] MEDS: KETOROLAC 15 MG/ML 1 ML VIAL IVP SCH ×4 (00:57→17:48)
[2022-02-07] MEDS: metroNIDAZOLE-NS PMX 500 MG in SALINE 1 100ML.BAG IVPB SCH ×3 (01:04→16:25)
[2022-02-07] MEDS: VANCOMYCIN 1,750 MG in SODIUM CHLORIDE 0.9% 500 ML 500 ML IVPB SCH ×4 (01:46→17:49)
[2022-02-07] MEDS: HYDROmorphone 1 MG/ML 1 ML SYRINGE IVP PRN ×4 (01:51→20:18)
--- NOTE | 2022-02-07 04:32 | PN ---
PROGRESS NOTE DATE OF SERVICE: 02/06/2022 SUBJECTIVE: This is a 21-year-old gentleman who was admitted after sigmoid colectomy, had also some postoperative fever. The evaluation is negative. There is no evidence of sepsis. No chest pain. No palpitation. PHYSICAL EXAMINATION: VITAL SIGNS: Pulse 72, blood pressure 114/73, respirations 15. CHEST: Clear to auscultation. CARDIOVASCULAR: S1, S2 normal. ABDOMEN: Soft, status post surgery. LABS: Reviewed. ASSESSMENT: 1. Status post sigmoid colectomy and colostomy. 2. Recurrent diverticulitis history. RECOMMENDATIONS AND DISCUSSION: Recommend to continue current management and symptomatic treatment. Incentive spirometry. The patient is on Rocephin. Recommend to continue the Rocephin and as mentioned earlier, cultures are negative. Further recommendations to follow. MMODL / IJN: [id number] /
[2022-02-07] MEDS ORDERED: VANCOMYCIN TROUGH DUE 1 EACH MISC MISCELLANE ONE (07:00)
[2022-02-07] MEDS: PANTOPRAZOLE 40 MG/10 ML VIAL IVP SCH (07:31)
[2022-02-07] MEDS: DEXTROSE 5%-0.45% NACL 1,000 ML IV SCH (07:56)
[2022-02-07] MEDS: HEPARIN SODIUM,PORCINE/PF 5,000 UNIT/0.5 ML SYRINGE SQ SCH ×2 (10:19→20:19)
[2022-02-07 10:49] LABS: African American GFR (CKD) 149.7 (60.0-200.0); Non-African American GFR(CKD) 129.2 (60.0-200.0)
--- NOTE | 2022-02-07 14:57 | P.PN ---
Subjective Progress Note Date: 02/07/22 CHIEF COMPLAINT: Diverticulitis history HISTORY OF PRESENT ILLNESS: Postoperative day #4. Status post colectomy with colostomy. Patient does report abdominal pain. He reports the pain is getting better each day. Denies any nausea or vomiting. He has passed air from his ostomy. No stool. Denies any nausea vomiting. Tolerating full liquids. Afebrile. WBC 4.71 creatinine 0.8 Patient seen and examined with Dr. Khalil. PHYSICAL EXAM: VITAL SIGNS: Reviewed. GENERAL: Well-developed in no acute distress. HEENT: No sclera icterus. Extraocular movements grossly intact. Moist buccal mucosa. Head is atraumatic, normocephalic. ABDOMEN: Soft. Incisional dressing clean dry and intact. Colostomy on the left and stoma is pink. Serosanguineous drainage noted in the colostomy NEUROLOGIC: Alert and oriented. Cranial nerves II through XII grossly intact. ASSESSMENT: 1. Diverticulitis status post colectomy with colostomy PLAN: -Continue full liquid diet -Add [place] for oral pain medication -Encouraged patient to increase activity level and ambulate -Hep-Lock IV -Continue to work with PT OT -Antibiotics per infectious disease -Encouraged patient to increase activity level -GI prophylaxis Protonix and DVT prophylaxis subcu heparin Physician Corn Detasseler note has been reviewed by physician. Signing provider agrees with the documented findings, assessment, and plan of care. Objective - Vital Signs Vital signs: Vital Signs Temp 98.1 F 02/07/22 08:00 Pulse 64 02/07/22 08:00 Resp 18 02/07/22 08:00 BP 152/71 02/07/22 08:00 Pulse Ox 98 02/07/22 08:00 FiO2 Intake & Output 02/06/22 02/07/22 02/07/22 18:59 06:59 18:59 Intake Total 780 Output Total 1600 Balance -820 Intake: Oral 780 Output: Urine 1600 Uretheral ([place]) 1100 Other: Voiding Method Indwelling Catheter Indwelling Catheter Urinal # Voids 2 - Labs CBC & Chem 7: 02/06/22 07:12 02/07/22 07:59
[2022-02-07] MEDS: HYDROcodone/APAP 5-325MG 1 EACH TAB PO PRN (16:25)
[2022-02-08] MEDS: KETOROLAC 15 MG/ML 1 ML VIAL IVP SCH ×4 (00:18→18:09)
[2022-02-08] MEDS: metroNIDAZOLE-NS PMX 500 MG in SALINE 1 100ML.BAG IVPB SCH ×3 (00:18→16:04)
[2022-02-08] MEDS: VANCOMYCIN 1,750 MG in SODIUM CHLORIDE 0.9% 500 ML 500 ML IVPB SCH ×3 (02:19→18:10)
--- NOTE | 2022-02-08 03:45 | PN ---
PROGRESS NOTE SUBJECTIVE: This is a 21-year-old gentleman, who was admitted after sigmoid colectomy is closely monitored. No chest pain. No palpitations. No fever. PHYSICAL EXAMINATION: VITAL SIGNS: Pulse is 64, blood pressure 150/70, respirations 18. CHEST: Clear to auscultation. CARDIOVASCULAR: S1, S2. ABDOMEN: Soft, status post surgery. LABS: Reviewed. ASSESSMENT: 1. Status post sigmoid colectomy and colostomy. 2. Postoperative fever, improved. 3. Recurrent diverticulitis history. RECOMMENDATIONS AND DISCUSSION: I recommend to continue current medications, symptomatic treatment. Otherwise, incentive spirometry. Closely follow with surgery. Further recommendations to follow. MMODL / IJN: [id number] /
[2022-02-08] MEDS: HEPARIN SODIUM,PORCINE/PF 5,000 UNIT/0.5 ML SYRINGE SQ SCH ×2 (08:19→22:15)
[2022-02-08] MEDS: HYDROcodone/APAP 5-325MG 1 EACH TAB PO PRN (08:19)
[2022-02-08] MEDS: PANTOPRAZOLE 40 MG/10 ML VIAL IVP SCH (08:19)
--- NOTE | 2022-02-08 09:12 | P.PN ---
Subjective Progress Note Date: 02/06/22 Principal diagnosis: Complicated diverticulitis with intra-abdominal abscess Patient is a 21-year male with a past medical he significant for diverticulitis status post sigmoid colectomy with postop complication of intra- abdominal abscess subsequently admitted to hospital status post laparotomy and diverting colostomy. On today's evaluation that is 02/06/2022, patient remains to be afebrile, patient is breathing comfortably on room air, the patient abdominal pain has slightly decreased in intensity no nausea or vomiting has been tolerating his diet Objective - Vital Signs Vital signs: Vital Signs Temp 98.6 F 02/06/22 08:00 Pulse 74 02/06/22 08:00 Resp 16 02/06/22 08:00 BP 115/69 02/06/22 08:00 Pulse Ox 97 02/06/22 08:00 FiO2 Intake & Output 02/05/22 02/06/22 02/06/22 18:59 06:59 18:59 Intake Total 220.5 600 Output Total 2100 1500 Balance -1879.5 -900 Intake: Intake, IV Titration 220.5 Amount Ropivacaine 250 mg 220.5 Hydromorphone (Pf) 5 mg In Sodium Chloride 0.9% 200 ml @ Per Protocol EPIDURAL .Q0M PRN Rx#: [id number] Oral 600 Output: Urine 2100 1500 Other: Voiding Method Indwelling Catheter Indwelling Catheter - Exam GENERAL DESCRIPTION: Young male lying in bed in no distress RESPIRATORY SYSTEM: Unlabored breathing , decreased breath sounds at bases HEART: S1 S2 regular rate and rhythm , ABDOMEN: Soft , no tenderness EXTREMITIES: No edema feet - Labs CBC & Chem 7: 02/06/22 07:12 02/07/22 07:59 Assessment and Plan (1) Sigmoid diverticulitis Current Visit: Yes Status: Acute Code(s): K57.32 - DVTRCLI OF LG INT W/O PERFORATION OR ABSCESS W/O BLEEDING SNOMED Code(s): 060726431 Plan: 1patient with a complicated history of diverticulitis requiring surgery followed by complication with intra-abdominal abscess culture has been positive for MRSA failing conservative therapy including a CT-guided drainage in this patient who is status post laparotomy and diverting colostomy no clear documentation of any residual intra-abdominal abscess or fistula formation 2patient will continue with vancomycin Rocephin and Flagyl while inpatient and monitor clinical course closely Time with Patient: Less than 30
--- NOTE | 2022-02-08 09:14 | P.PN ---
Subjective Progress Note Date: 02/07/22 Principal diagnosis: Complicated diverticulitis with intra-abdominal abscess Patient is a 21-year male with a past medical he significant for diverticulitis status post sigmoid colectomy with postop complication of intra- abdominal abscess subsequently admitted to hospital status post laparotomy and diverting colostomy. On today's evaluation that is 02/07/2022, patient continues to be afebrile, patient is breathing comfortably on room air, the patient abdominal pain has slightly decreased in intensity, the patient denies nausea or vomiting has been tolerating his clear liquid diet Objective - Vital Signs Vital signs: Vital Signs Temp 98.1 F 02/07/22 08:00 Pulse 64 02/07/22 08:00 Resp 18 02/07/22 08:00 BP 152/71 02/07/22 08:00 Pulse Ox 98 02/07/22 08:00 FiO2 Intake & Output 02/06/22 02/07/22 02/07/22 18:59 06:59 18:59 Intake Total 780 Output Total 1600 Balance -820 Intake: Oral 780 Output: Urine 1600 Uretheral ([place]) 1100 Other: Voiding Method Indwelling Catheter Indwelling Catheter Urinal # Voids 2 - Exam GENERAL DESCRIPTION: Young male lying in bed in no distress RESPIRATORY SYSTEM: Unlabored breathing , decreased breath sounds at bases HEART: S1 S2 regular rate and rhythm , ABDOMEN: Soft , no tenderness EXTREMITIES: No edema feet - Labs CBC & Chem 7: 02/06/22 07:12 02/07/22 07:59 Assessment and Plan (1) Sigmoid diverticulitis Current Visit: Yes Status: Acute Code(s): K57.32 - DVTRCLI OF LG INT W/O PERFORATION OR ABSCESS W/O BLEEDING SNOMED Code(s): 458230872 Plan: 1patient with a complicated history of diverticulitis requiring surgery followed by complication with intra-abdominal abscess culture has been positive for MRSA failing conservative therapy including a CT-guided drainage in this patient who is status post laparotomy and diverting colostomy no clear documentation of any residual intra-abdominal abscess or fistula formation 2patient is slowly clinical improvement and will continue with vancomycin Rocephin and Flagyl while inpatient and short course of oral antibiotics on discharge Time with Patient: Less than 30
[2022-02-08] MEDS: HYDROmorphone 1 MG/ML 1 ML SYRINGE IVP PRN ×2 (09:32→19:15)
--- NOTE | 2022-02-08 10:50 | P.PN ---
Progress Note - Text Progress Note Date: 02/08/22 Patient feels better today. On exam vessels are still. Abdomen soft. There is stool in the colostomy site. Status post Sami procedure for history of diverticula is. Patient will K receive supportive care. We will advance his diet to regular.
[2022-02-09] MEDS: KETOROLAC 15 MG/ML 1 ML VIAL IVP SCH ×2 (00:14→05:53)
[2022-02-09] MEDS: metroNIDAZOLE-NS PMX 500 MG in SALINE 1 100ML.BAG IVPB SCH ×3 (00:15→17:01)
[2022-02-09] MEDS: VANCOMYCIN 1,750 MG in SODIUM CHLORIDE 0.9% 500 ML 500 ML IVPB SCH ×3 (02:04→17:01)
[2022-02-09] MEDS: HYDROcodone/APAP 5-325MG 1 EACH TAB PO PRN ×3 (02:09→20:07)
[2022-02-09 08:17] LABS: African American GFR (CKD) >90 (>60 ml/min/1.73 sqM); Anion Gap 9 mmol/L; Blood Urea Nitrogen 9 mg/dL (9-20); Calcium 8.2 mg/dL (8.4-10.2); Carbon Dioxide 23 mmol/L (22-30); Chloride 105 mmol/L (98-107); Glucose 87 mg/dL (74-99); Non-African American GFR(CKD) >90 (>60 ml/min/1.73 sqM); Potassium 3.9 mmol/L (3.5-5.1); Sodium 137 mmol/L (137-145)
[2022-02-09] MEDS: PANTOPRAZOLE 40 MG/10 ML VIAL IVP SCH (10:09)
[2022-02-09] MEDS: HEPARIN SODIUM,PORCINE/PF 5,000 UNIT/0.5 ML SYRINGE SQ SCH ×2 (10:10→21:52)
[2022-02-09] MEDS: HYDROmorphone 1 MG/ML 1 ML SYRINGE IVP PRN (10:18)
--- NOTE | 2022-02-09 12:58 | P.PN ---
Progress Note - Text Progress Note Date: 02/09/22 Patient's resting comfortably in his bed. He feels slightly better than yesterday. He is a poor oral intake. He's continue receive IV antibiotics. On exam vital signs are stable. Abdomen is soft. Incisions clean dry tach. Colostomy dysfunction. History of chronic diverticulitis. Status post sigmoid resection with diverting colostomy. Patient will have his IV antibiotics assessed by Dr. Ev montes de oca. Weight is a discharge home tomorrow.
--- NOTE | 2022-02-09 21:49 | PN ---
PROGRESS NOTE SUBJECTIVE: This is a 21-year-old gentleman who was admitted with sigmoid colectomy, and colostomy is closely monitored. The patient has some occasional left-sided abdominal pain on walking. No chest pain. No palpitation. PHYSICAL EXAMINATION: VITAL SIGNS: Pulse 75, blood pressure 120/76, respirations 18. CHEST: Clear to auscultation. CARDIOVASCULAR: S1, S2 muffled. ABDOMEN: Soft, nontender. LABS: Noted. ASSESSMENT: 1. Status post sigmoid colectomy and colostomy. 2. Postoperative fever, improved. 3. Recurrent diverticulitis history. RECOMMENDATIONS AND DISCUSSION: Recommend to continue current management and symptomatic treatment. Incentive spirometry. Closely follow with Surgery. Further recommendations to follow. MMODL / IJN: [id number] /
[2022-02-10] MEDS: HYDROmorphone 1 MG/ML 1 ML SYRINGE IVP PRN (01:01)
[2022-02-10] MEDS: metroNIDAZOLE-NS PMX 500 MG in SALINE 1 100ML.BAG IVPB SCH ×2 (01:03→09:52)
[2022-02-10] MEDS: VANCOMYCIN 1,750 MG in SODIUM CHLORIDE 0.9% 500 ML 500 ML IVPB SCH ×2 (02:04→11:07)
[2022-02-10] MEDS ORDERED: VANCOMYCIN TROUGH DUE 1 EACH MISC MISCELLANE ONE (09:00)
--- NOTE | 2022-02-10 09:03 | P.PN ---
Subjective Progress Note Date: 02/08/22 Principal diagnosis: Complicated diverticulitis with intra-abdominal abscess Patient is a 21-year male with a past medical he significant for diverticulitis status post sigmoid colectomy with postop complication of intra- abdominal abscess subsequently admitted to hospital status post laparotomy and diverting colostomy. On today's evaluation that is 02/08/2022, patient remains to be afebrile, patient is breathing comfortably on room air, the patient abdominal pain has decreased in intensity, the patient denies nausea or vomiting, the patient has been tolerating his diet which has been advanced Objective - Vital Signs Vital signs: Vital Signs Temp 99.2 F 02/08/22 01:25 Pulse 63 02/08/22 01:25 Resp 18 02/08/22 01:25 BP 117/69 02/08/22 01:25 Pulse Ox 96 02/08/22 09:03 FiO2 Intake & Output 02/07/22 02/08/22 02/08/22 18:59 06:59 18:59 Output Total 340 Balance -340 Output: Urine 340 Other: Voiding Method Urinal # Voids 4 - Exam GENERAL DESCRIPTION: Young male lying in bed in no distress RESPIRATORY SYSTEM: Unlabored breathing , decreased breath sounds at bases HEART: S1 S2 regular rate and rhythm , ABDOMEN: Soft , no tenderness EXTREMITIES: No edema feet - Labs CBC & Chem 7: 02/06/22 07:12 02/09/22 07:19 Assessment and Plan (1) Sigmoid diverticulitis Current Visit: Yes Status: Acute Code(s): K57.32 - DVTRCLI OF LG INT W/O PERFORATION OR ABSCESS W/O BLEEDING SNOMED Code(s): 379421743 Plan: 1patient with a complicated history of diverticulitis requiring surgery f ollowed by complication with intra-abdominal abscess culture has been positive for MRSA failing conservative therapy including a CT-guided drainage in this patient who is status post laparotomy and diverting colostomy no clear documentation of any residual intra-abdominal abscess or fistula formation 2patient has shown clinical improvement and is currently being treated with vancomycin Rocephin and Flagyl while inpatient and short course of oral antibiotics on discharge Time with Patient: Less than 30
--- NOTE | 2022-02-10 09:05 | P.PN ---
Subjective Progress Note Date: 02/09/22 Principal diagnosis: Complicated diverticulitis with intra-abdominal abscess Patient is a 21-year male with a past medical he significant for diverticulitis status post sigmoid colectomy with postop complication of intra- abdominal abscess subsequently admitted to hospital status post laparotomy and diverting colostomy. On today's evaluation that is 02/09/2022, patient continues to be afebrile, patient is breathing comfortably on room air, the patient abdominal pain has decreased in intensity, the patient denies nausea or vomiting, the patient did have on Coumadin his colostomy bag and has been tolerating his diet and wants to go home Objective - Vital Signs Vital signs: Vital Signs Temp 98.2 F 02/09/22 08:00 Pulse 62 02/09/22 08:00 Resp 15 02/09/22 08:00 BP 120/73 02/09/22 08:00 Pulse Ox 98 02/09/22 08:00 FiO2 Intake & Output 02/08/22 02/09/22 02/09/22 18:59 06:59 18:59 Intake Total 1200 Balance 1200 Intake: Intake, IV Titration 700 Amount Vancomycin 1,750 mg In 500 Sodium Chloride 0.9% 500 ml 500 ml @ 166.667 mls/ hr IVPB Q8H LAYLA Rx#: [id number] metroNIDAZOLE-NS PMX 500 200 mg In Saline 1 100ml.bag @ 100 mls/hr IVPB Q8H LAYLA Rx#:[id number] Oral 500 Other: Voiding Method Urinal # Voids 3 - Exam GENERAL DESCRIPTION: Young male lying in bed in no distress RESPIRATORY SYSTEM: Unlabored breathing , decreased breath sounds at bases HEART: S1 S2 regular rate and rhythm , ABDOMEN: Soft , no tenderness EXTREMITIES: No edema feet - Labs CBC & Chem 7: 02/06/22 07:12 02/09/22 07:19 Labs: Abnormal Lab Results - Last 24 Hours (Table) 02/09/22 Range/Units 07:19 Creatinine 0.58 L (0.66-1.25) mg/dL Calcium 8.2 L (8.4-10.2) mg/dL Assessment and Plan (1) Sigmoid diverticulitis Current Visit: Yes Status: Acute Code(s): K57.32 - DVTRCLI OF LG INT W/O PERFORATION OR ABSCESS W/O BLEEDING SNOMED Code(s): 379863045 Plan: 1patient with a complicated history of diverticulitis requiring surgery followed by complication with intra-abdominal abscess culture has been positive for MRSA failing conservative therapy including a CT-guided drainage in this patient who is status post laparotomy and diverting colostomy no clear documentation of any residual intra-abdominal abscess or fistula formation 2patient has shown clinical improvement and we will continue with vancomycin Rocephin and Flagyl while inpatient and consider short course of oral doxycycline on discharge, mother at the bedside questions and concerns were answered Time with Patient: Less than 30
[2022-02-10] MEDS: HEPARIN SODIUM,PORCINE/PF 5,000 UNIT/0.5 ML SYRINGE SQ SCH (09:49)
[2022-02-10] MEDS: HYDROcodone/APAP 5-325MG 1 EACH TAB PO PRN (09:52)
[2022-02-10] MEDS: PANTOPRAZOLE 40 MG/10 ML VIAL IVP SCH (10:28)
--- NOTE | 2022-02-10 14:26 | PN ---
PROGRESS NOTE SUBJECTIVE: This is a 21-year-old gentleman, who was admitted after sigmoid colectomy and colostomy. He is being closely monitored. No chest pain. No palpitations. No fever. OBJECTIVE: VITAL SIGNS: Pulse is 62, blood pressure 120/76, respirations 18. HEENT: Conjunctivae are normal. NECK: No jugular venous distention. CARDIOVASCULAR: S1 and S2. RESPIRATORY: Breath sounds diminished at the bases. ABDOMEN: Soft. Status post surgery. LEGS: No edema. No swelling. LABORATORY DATA: Reviewed. ASSESSMENT: 1. Status post sigmoid colectomy and colostomy. 2. Postoperative fever, mildly improved. 3. Recurrent diverticulitis history. RECOMMENDATIONS: Recommend to continue current management and symptomatic treatment. Incentive spirometry. DVT prophylaxis. Otherwise, rest of the recommendations per Surgery. Further recommendations to follow. MMODL / IJN: [id number] /
--- NOTE | 2022-02-10 14:27 | P.DS ---
Providers Date of admission: 02/03/22 07:13 Expected date of discharge: 02/10/22 Attending physician: Saúl Khalil Consults: 02/03/22 13:51 Consult Physician Routine Consulting Provider: Jennifer Conn Consult Reason/Comments: medical management Do you want consulting provider notified?: Yes Placement Type Exists?: Yes 02/04/22 11:44 Consult Physician Routine Consulting Provider: Dora Rainey Consult Reason/Comments: diverticulitis on antibiotics prior to surgery Do you want consulting provider notified?: Yes Primary care physician: Alexandro Giron Hospital Course: Discharge diagnosis 1. Diverticulitis status post sigmoid colectomy with colostomy Hospital course This is a 22-year-old male with a known history of chronic diverticulitis. He is status post sigmoid colectomy with colostomy. Patient reports that his pain is controlled. He is tolerating diet. His ostomy is functioning. He is afebrile. He is up and ambulating. He is stable for discharge. He'll be discharged home on oral antibiotics per infectious disease recommendations. Please refer to chart for any further details. Physician Sharebroker note has been reviewed by physician. Signing provider agrees with the documented findings, assessment, and plan of care. Health Concerns: Colostomy Care Recommendations for Home: LAst pouching system changed: 02.10.2022 Mr Ko will be sent home the following items from the hospital: Convatec one piece cut to fit pocuhing system with filter #[id number] (3) Ostomy powder (1) No sting prep pads (10) Bennett Seal (2) Convatec flange moldable #[id number] (3) Convatec pouching bag with filter #[id number] (3) Mr Ko is to change the entire pouching system every 3-5 days unless directed by the Home Health care Nurse Mr Ko is to empty the pouching system when it is 1/3 to 1/2 full while sitting or straddling the toilet Mr Ko can shower with the pouching system in place and blow dry after showering Home Health please assist Mr Ko to arrange for disposable precut pouching system in 3 weeks from [facility] Patient Condition at Discharge: Stable Plan - Discharge Summary Discharge Rx Participant: No New Discharge Prescriptions: New Doxycycline [Vibramycin] 100 mg PO BID 10 Days #20 capsule HYDROcodone/APAP 5-325MG [[place] 5-325] 1 tab PO Q6HR PRN 3 Days #12 tab PRN Reason: Pain Amoxic-Pot Clav 875-125Mg [Augmentin 875-125] 1 tab PO Q12HR 10 Days #20 tab Discontinued Vancomycin(Unknown Dose) 1,250 mg IVPB TID Augmentin(Unknown Dose) 1 tab PO BID Discharge Medication List Amoxic-Pot Clav 875-125Mg [Augmentin 875-125] 1 tab PO Q12HR 10 Days #20 tab 02/10/22 [Rx] Doxycycline [Vibramycin] 100 mg PO BID 10 Days #20 capsule 02/10/22 [Rx] HYDROcodone/APAP 5-325MG [[place] 5-325] 1 tab PO Q6HR PRN 3 Days #12 tab 02/10/22 [Rx] Follow up Appointment(s)/Referral(s): [facility],[place] [NON-STAFF] - As Needed Saúl Khalil MD [STAFF PHYSICIAN] - 1 Week Patient Instructions/Handouts: Diverticulitis (GEN), Colostomy Care (GEN) Activity/Diet/Wound Care/Special Instructions: No driving while taking [place] No lifting over 10 pounds Shower daily. No soaking or tub baths for 2 weeks Very light activity until you are reevaluated at your follow up appointment with your surgeon Discharge Disposition: HOME SELF-CARE
[2022-02-10 14:34] VITALS: BP 117/70; PULSE 57; RESP 16; TEMP 97.9
--- NOTE | 2022-02-10 15:37 | P.PN ---
Subjective Progress Note Date: 02/10/22 This is a 21 year old male who is status post sigmoid colectomy with end colostomy secondary to history of diverticulitis. Patient is post operative day #7. Is tolerating regular diet has stool from his ostomy today. Patient states that he did most of the ostomy change today with ostomy resource nurse. For having some abdominal pain rating it a 5 out of 10 states the norco is helping but the pain is worse when he is ambulating. Patient does have history of ADD and states that he is anxious for discharge today. He has had no white count. Most recent labs showing a sodium of 137, potassium 3.9, B1 9, creatinine 0.58. He is afebrile, heart rate 57, blood pressure 117/70, 97% there. Patient is discharged by surgical services today and discharged on oral Augmentin and doxycycline. We'll add a short course of oral Pepcid for GI prophylaxis. Medically can be cleared for discharge. Review of Systems Constitutional: Denied any fatigue denied any fever. Cardio vascular: denied any chest pain, palpitations Gastrointestinal: denied any nausea, vomiting, diarrhea. Reports abdominal pain 5/10. Pulmonary: Denied any shortness of breath cough Neurologic denied any new focal deficits All inpatient medications were reviewed and appropriate changes in these medications as dictated in the interval history and assessment and plan. PHYSICAL EXAMINATION: GENERAL: The patient is alert and oriented x3, not in any acute distress. Well developed, well nourished. HEENT: Pupils are round and equally reacting to light. EOMI. No scleral icterus. No conjunctival pallor. Normocephalic, atraumatic. No pharyngeal erythema. No thyromegaly. CARDIOVASCULAR: S1 and S2 present. No murmurs, rubs, or gallops. PULMONARY: Chest is clear to auscultation, no wheezing or crackles. ABDOMEN: Soft, nontender, nondistended, normoactive bowel sounds. No palpable organomegaly. LLQ ostomy in place. Post surgical abdomen with midline incision. MUSCULOSKELETAL: No joint swelling or deformity. EXTREMITIES: No cyanosis, clubbing, or pedal edema. NEUROLOGICAL: Gross neurological examination did not reveal any focal deficits. SKIN: No rashes. Assessment and Plan Assessment Status post sigmoid colectomy and colostomy Postoperative fever, improved Recurrent diverticulitis History of ADD GI prophylaxis Plan Patient is cleared for discharge medically Discharge per surgical services today on oral antibiotics Recommend follow-up with primary care 1-2 days Pepcid added for GI prophylaxis Thank you kindly for this consultation. The impression and plan of care has been dictated by Jenn Fitzgerald, Nurse Practitioner as directed. Dr. Israel MD I have performed a history and physical examination and medical decision making of this patient, discussed the same with the dictator, and agree with the dictators assessment and plan as written, documented as a scribe. Based on total visit time, I have performed more than 50% of this visit. Objective - Vital Signs Vital signs: Vital Signs Temp 97.9 F 02/10/22 14:34 Pulse 57 L 02/10/22 14:34 Resp 16 02/10/22 14:34 BP 117/70 02/10/22 14:34 Pulse Ox 97 02/10/22 14:34 FiO2 Intake & Output 02/09/22 02/10/22 02/10/22 18:59 06:59 18:59 Intake Total 700 Balance 700 Intake: IV 700 cefipime 100 flagyl 100 vancomycin 500 Other: Voiding Method Urinal Urinal # Voids 3 3 # Bowel Movements 1 - Labs CBC & Chem 7: 02/06/22 07:12 02/09/22 07:19 Assessment and Plan Time with Patient: Less than 30
--- NOTE | 2022-02-11 12:06 | P.OP ---
Date of Procedure: 02/03/22 Preoperative Diagnosis: Chronic Diverticulitis Postoperative Diagnosis: Chronic diverticulitis Procedure(s) Performed: Sigmoid colectomy with end colostomy Anesthesia: BRAXTON Surgeon: Saúl Khalil Estimated Blood Loss (ml): 25 Pathology: other (Sigmoid/left colon) Condition: stable Disposition: PACU Indications for Procedure: The 21-year-old male with chronic history of diverticulitis. Patient underwent previous laparoscopic sigmoid colectomy at [facility] proximate 18 months ago. 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 Patient presents today for sigmoid colectomy with end colostomy. Description of Procedure: The patient's placed on the operative table in the supine position. He received general endotracheal tube anesthesia. His abdomen was prepped and draped usual fashion. The abdomen was entered through a low midline incision. The Bookwalter retractors placed a wound after the abdominal wall was divided. The adhesions in the left lower quadrant were lysed with sharp dissection. At this point the left colon was transected at a suitable spot after the left colon was mobilized. The colon was divided with the HOWARD stapler. The mesocolon was then divided with the Enseal device. The rectum was then divided with the contour stapler. The specimens of pathology. There were significant adhesions in the pelvis. It appears the patient has evidence of a previous potential anastomotic leak which had scarred. This point the pelvis was irrigated there is no bleeding seen. The colostomy site was then brought up left mid abdomen. A suitable spot for the colostomy was chosen in the abdominal wall. And then the skin was incised and then the rectus muscles were divided in the colon was brought up through the colostomy site. The abdomen was area there is no bleeding seen. The fascia was closed with looped #1 PDS. Skin was Earl vidya. The colostomy then matured with 3-0 Vicryl suture. Sterile dressing applied. Patient top she will was sent to recovery room in stable condition.
--- NOTE | 2022-02-13 08:26 | CDI ---
Documentation Clarification Form Date: 02/13/2022 08:07:00 AM From: Raquel Barakat Admit Date: 02/03/2022 07:13:00 AM Patient Name: Kirill Ko Visit Number: [id number] Discharge Date: 02/10/2022 05:40:00 PM ATTENTION: The Clinical Documentation Specialists (CDI) and [facility] Coding Staff appreciate your assistance in clarifying documentation. Please respond to the clarification below the line at the bottom and electronically sign. The CDI & [facility] Coding staff will review the response and follow-up if needed. Please note: Queries are made part of the Legal Health Record. If you have any questions, please contact the author of this message via ITS. Dr. Saúl Khalil There is documentation of Colostomy dysfunction in 02/09/2022 Progress note. This documentation has not been carried through chart. Additional clarification is requested whether patient had a colostomy dysfunction or was this ruled out. History/Risk Factors: chronic diverticulitis with abscess. Patient with sigmoidectomy with colostomy. History of laparoscopic sigmoidectomy. History of bladder abscess MRSA, Post operative pain Clinical Indicators: Treatment: Dilaudid, Rocephin, Vanco and Flagyl Can you please clarify if patient had a colostomy dysfunction or was it ruled out. [ ] Colostomy dysfunction [ x] Colostomy dysfunction ruled out [ ] Other, please specify [ ] Unable to determine (Template Last Revised: July 2020) MTDD
--- NOTE | 2022-02-17 23:38 | P.PN ---
Subjective Progress Note Date: 02/10/22 Principal diagnosis: Complicated diverticulitis with intra-abdominal abscess Patient is a 21-year male with a past medical he significant for diverticulitis status post sigmoid colectomy with postop complication of intra- abdominal abscess subsequently admitted to hospital status post laparotomy and diverting colostomy. On today's evaluation that is 02/10/2022, patient is afebrile, patient is breathing comfortably on room air, the patient abdominal pain has decreased in intensity, the patient denies nausea or vomiting, the patient did have output in his colostomy bag and has been tolerating his diet Objective - Vital Signs Vital signs: Vital Signs Temp 98.3 F 02/10/22 07:41 Pulse 82 02/10/22 07:41 Resp 17 02/10/22 07:41 BP 134/85 02/10/22 07:41 Pulse Ox 96 02/10/22 07:41 FiO2 Intake & Output 02/09/22 02/10/22 02/10/22 18:59 06:59 18:59 Intake Total 700 Balance 700 Intake: IV 700 cefipime 100 flagyl 100 vancomycin 500 Other: Voiding Method Urinal Urinal # Voids 3 3 # Bowel Movements 1 - Exam GENERAL DESCRIPTION: Young male lying in bed in no distress RESPIRATORY SYSTEM: Unlabored breathing , decreased breath sounds at bases HEART: S1 S2 regular rate and rhythm , ABDOMEN: Soft , no tenderness EXTREMITIES: No edema feet - Labs CBC & Chem 7: 02/06/22 07:12 02/09/22 07:19 Assessment and Plan (1) Sigmoid diverticulitis Status: Acute Code(s): K57.32 - DVTRCLI OF LG INT W/O PERFORATION OR ABSCESS W/O BLEEDING SNOMED Code(s): 431587905 Plan: 1patient with a complicated history of diverticulitis requiring surgery followed by complication with intra-abdominal abscess culture has been positive for MRSA failing conservative therapy including a CT-guided drainage in this patient who is status post laparotomy and diverting colostomy no clear documentation of any residual intra-abdominal abscess or fistula formation 2patient has shown clinical improvement and will finish therapy with short course of oral doxycycline on discharge, Time with Patient: Less than 30
== END 2022-02-10 17:40 | disposition home health service (06) | DRG 329 ==
LOC: 2ORMAIN 07:13 → 4SSUR 11:45
PROVIDERS: ADMIT Surgery; ATTEND Surgery
PROC: 0DTN0ZZ Resection of Sigmoid Colon, Open Approach (ICD-10-PCS; principal; 2022-02-03 09:25)
PROC: 0D1M0Z4 Bypass Descending Colon to Cutaneous, Open Approach (ICD-10-PCS; principal; 2022-02-03 09:25)
DX: K57.20 Diverticulitis of large intestine with perforation and abscess without bleeding (principal); K65.1 Peritoneal abscess; R50.82 Postprocedural fever; Z28.310 Unvaccinated for COVID-19; Z28.21 Immunization not carried out because of patient refusal; Z86.14 Personal history of Methicillin resistant Staphylococcus aureus infection; Z90.49 Acquired absence of other specified parts of digestive tract; F98.8 Other specified behavioral and emotional disorders with onset usually occurring in childhood and adolescence; Z88.0 Allergy status to penicillin; Z91.041 Radiographic dye allergy status; F17.290 Nicotine dependence, other tobacco product, uncomplicated
CPT/HCPCS: 71045; 80048; 80053; 80202; 81003; 82565; 85025; 86140; 86850; 86900; 86901; 88307; 94760

== ENCOUNTER → 2022-05-27 | Outpatient (CLI) | payer BC ==
--- NOTE | 2022-05-27 19:29 | CT ---
EXAMINATION TYPE: CT abdomen pelvis w con CT DLP: 1100.1 mGycm, Automated exposure control for dose reduction was used. DATE OF EXAM: 05/27/2022 7:13 PM COMPARISON: CT abdomen pelvis most recent from 12/20/2021. CLINICAL INDICATION:Male, 22 years old with history of K57.32; f/u diverticulitis TECHNIQUE: Axial CT of the abdomen and pelvis. Sagittal and coronal reformats were created on a [employer] workstation. Contrast used:100 mL of Isovue 300 with IV Contrast, Oral contrast used: with Oral Contrast FINDINGS: LOWER CHEST: Unremarkable ABDOMEN LIVER: Unremarkable GALLBLADDER AND BILE DUCTS: Unremarkable. PANCREAS: Unremarkable. SPLEEN: Unremarkable. ADRENAL GLANDS: Unremarkable. KIDNEYS AND URETERS: No evidence of hydronephrosis or renal calculus. The ureters are unremarkable. PELVIS BLADDER: Unremarkable REPRODUCTIVE: Unremarkable. ABDOMEN & PELVIS STOMACH AND BOWEL: Diverting ostomy in the left abdominal wall. There is no evidence of obstruction. No evidence a parastomal hernia. The appendix is normal. There is circumferential wall thickening brenda suring up to 16 mm. There is enlarged right mesorectal fascia lymph node measuring up to 13 mm. Addit ional other prominent lymph nodes are identified series 3 image 72 and image 71. PERITONEUM/RETROPERITONEUM: No evidence of pneumoperitoneum or free fluid. . VASCULATURE: No evidence of aortic aneurysm. MUSCULOSKELETAL: No acute osseous abnormalities LYMPH NODES: No gross evidence for lymphadenopathy. SOFT TISSUE/ABDOMINAL WALL: Unremarkable IMPRESSION: 1. Diverting ostomy without evidence of complication. 2. Circumferential rectal wall thickening involving the rectal stump with some right adjacent enlar ged lymph nodes. Correlate for proctitis. These lymph nodes have increased in size from 12/20/2021.
== END | disposition home or self-care (01) ==
LOC: RADCTMAIN 18:36
PROVIDERS: ATTEND Surgery
DX: K57.32 Diverticulitis of large intestine without perforation or abscess without bleeding (principal); K62.89 Other specified diseases of anus and rectum; R59.0 Localized enlarged lymph nodes
CPT/HCPCS: 74177; Q9967

== ENCOUNTER 2023-08-01 14:22 | Emergency (ER) | payer BC ==
--- NOTE | 2023-08-01 14:46 | ED ---
Abdominal Pain HPI - General Chief Complaint: GI Bleed Stated Complaint: Blood in Stoma Bag Time Seen by Provider: 08/01/23 14:31 Source: patient, RN notes reviewed Mode of arrival: ambulatory Limitations: no limitations - History of Present Illness Initial Comments: This is a 23-year-old male who presents to the emergency department for abdominal pain. Patient has a colostomy bag secondary to recurrent diverticulitis leading to sigmoid colectomy. States that over the last couple of days he has had increasing abdominal pain and diarrhea. He then started to develop blood in his colostomy bag. He went to urgent care, and was advised to come to the emergency department for evaluation. Denies any nausea/vomiting or fevers/chills. Follows with Dr. Khalil, but states that he has not seen him in over a year. MD Complaint: abdominal pain - Related Data Previous Rx's Medication Instructions Recorded Dicyclomine [Bentyl] 20 mg PO QID PRN #30 tablet 08/01/23 Allergies Allergy/AdvReac Type Severity Reaction Status Date / Time bee pollen Allergy Unknown Verified 08/01/23 16:01 Iodinated Contrast Media AdvReac Vomiting Verified 08/01/23 16:01 [Iodinated Contrast Media - Oral and] Penicillins AdvReac Vomiting Verified 08/01/23 16:01 steroids AdvReac Nausea & Uncoded 08/01/23 16:01 Vomiting & Diarrhea Review of Systems ROS Statement: Those systems with pertinent positive or pertinent negative responses have been documented in the HPI. ROS Other: All systems not noted in ROS Statement are negative. Past Medical History Additional Past Medical History / Comment(s): Diverticulitis., abscess on bladder & lower right quadrant in abdomen-has MRSA infection, recently in [facility] for, PICC line for vanco History of Any Multi-Drug Resistant Organisms: MRSA Date of last positivie culture/infection: abdomen MDRO Source:: December 2021 Past Surgical History: Bowel Resection Additional Past Surgical History / Comment(s): Colonoscopy., 08-13-20 sigmoidectomy @[facility], PICC line, colostomy feb 2022 Past Anesthesia/Blood Transfusion Reactions: No Reported Reaction, Motion Sickness Additional Past Anesthesia/Blood Transfusion Reaction / Comment(s): HAD COLONOSCOPY AND DID WELL WITH SEDATION. Past Psychological History: ADD/ADHD Smoking Status: Vaper Past Alcohol Use History: None Reported Past Drug Use History: Marijuana - Past Family History Mother Family Medical History: No Reported History Father Family Medical History: No Reported History General Exam Limitations: no limitations General appearance: alert, in no apparent distress Head exam: Present: atraumatic, normocephalic, normal inspection Respiratory exam: Present: normal lung sounds bilaterally. Absent: respiratory distress, wheezes, rales, rhonchi, stridor Cardiovascular Exam: Present: regular rate, normal rhythm, normal heart sounds. Absent: systolic murmur, diastolic murmur, rubs, gallop, clicks GI/Abdominal exam: Present: soft, tenderness (suprapubic), normal bowel sounds. Absent: distended Neurological exam: Present: alert, oriented X3, CN II-XII intact Psychiatric exam: Present: normal affect, normal mood Skin exam: Present: warm, dry, intact, normal color. Absent: rash Course Vital Signs 08/01/23 08/01/23 08/01/23 14:24 17:23 18:21 Temperature 98.1 F Pulse Rate 78 72 71 Respiratory 20 16 16 Rate Blood Pressure 136/81 142/73 135/73 O2 Sat by Pulse 99 99 99 Oximetry Medical Decision Making - Medical Decision Making This is a 23 year old male who presents to the emergency department for abdominal pain and blood in his colostomy bag. Was pt. sent in by a medical professional or institution? @ -No Did you speak to anyone other than the patient for history? @ -No Did you review nursing and triage notes? @ -Yes, and I agree, it is accurate with regards to the patient's symptoms. Were old charts reviewed? @ -No Differential Diagnosis? @ -Differential GI Bleed: Esophageal varices, aortoenteric fistula, Love-Resendez, gastritis, peptic ulcer disease, diverticulosis, inflammatory bowel disease, hemorrhoids, fissure, coli tis, malignancy, Meckels diverticulum, this is not meant to be an all-inclusive list. EKG interpreted by me (3pts min.)? @ -Not obtained X-rays interpreted by me (1pt min.)? @ -Not obtained CT interpreted by me (1pt min.)? @ -CTA of the abdomen and pelvis obtained. My interpretation identifies no evidence of contrast extravasation. U/S interpreted by me (1pt. min.)? @ -Not obtained What testing was considered but not performed? (CT, X-rays, U/S, labs)? Why? @ -None What meds were considered but not given? Why? @ -None Did you discuss the management of the patient with other professionals? @ -No Did you reconcile home meds? @ -No Was smoking cessation discussed for >3mins.? @ -No Was critical care preformed (if so, how long)? @ -No Were there social determinants of health that impacted care today? How? (Homelessness, low income, unemployed, alcoholism, drug addiction, transportation, low edu. Level, literacy, decrease access to med. care, correction, rehab)? @ -No Was there de-escalation of care discussed even if they declined? (Discuss DNR or withdrawal of care, Hospice)? @ -No What co-morbidities impacted this encounter? (DM, HTN, Smoking, COPD, CAD, Cancer, CVA, Hep., AIDS, mental health diagnosis, sleep apnea, morbid obesity)? @ -Recurrent diverticulitis, colostomy bag Was patient admitted / discharged? @ -Discharged. Lab work unremarkable, including a normal hemoglobin level and normal white blood cell count. Lactic acid negative. CTA of the abdomen and pelvis obtained following GI bleed protocol. This demonstrates a patent CTA of the abdomen and pelvis. There is no evidence of dissection, contrast extrav asation, or other abnormal collection of contrast. He has a stable appearance of the left lower quadrant colostomy. The rectal stump is of similar morphology when compared with prior. He does have some prominent perirectal nodules/nodes that are largely stable, with others possibly being slightly larger. They advised that these could be inflammatory/postinflammatory, however they advised continued follow-up. Patient has no cancer history, and they advised clinical correlation for this on CT read. He also has a nonspecific nodular density along the left superior aspect of the bladder. This is most likely to be a benign etiology, but will also likely need follow up. Results will be sent to patient's PCP to discuss appropriate follow up regarding this. Discussed with the patient that imaging does show continued inflammation along the rectal stump. This may be contributing factor to the bleeding. He does have obvious blood in his colostomy bag, however this is mixed with stool and not of significant amount. Advised that there is not a clear cause for the bleeding, however based on the unremarkable lab work and no obvious signs of infection, he can be discharged home at this time. He is advised to follow-up with general surgery for further evaluation. States that he has been on Bentyl before for similar symptoms. I am agreeable to trying this with him again and a prescr iption for this was provided. Patient discharged home in stable condition. Undiagnosed new problem with uncertain prognosis? @ -None Drug Therapy requiring intensive monitoring for toxicity (Heparin, Nitro, Insulin, Cardizem)? @ -None Were any procedures done? @ -None Diagnosis/symptom? @ -Abdominal pain, blood in stool Acute, or Chronic, or Acute on Chronic? @ -Acute Uncomplicated (without systemic symptoms) or Complicated (systemic symptoms)? @ -Uncomplicated Side effects of treatment? @ -None Exacerbation, Progression, or Severe Exacerbation] @ -Not applicable Poses a threat to life or bodily function? @ -Unlikely Return precautions reviewed in depth, the patient is instructed to return to the emergency department with any new, worsening, or concerning symptoms. Patient verbalized understanding. This case was discussed in detail with the attending ED physician, Dr. Reddy. Presentation, findings, and treatment plan discussed in detail as well. - Lab Data Result diagrams: 08/01/23 15:03 08/01/23 15:03 Lab Results 08/01/23 08/01/23 08/01/23 Range/Units 15:03 15:03 15:03 WBC 7.5 (3.8-10.6) k/uL RBC 5.24 (4.30-5.90) m/uL Hgb 16.2 (13.0-17.5) gm/dL Hct 47.0 (39.0-53.0) % MCV 89.8 (80.0-100.0) fL MCH 31.0 (25.0-35.0) pg MCHC 34.5 (31.0-37.0) g/dL RDW 12.7 (11.5-15.5) % Plt Count 275 (150-450) k/uL MPV 7.8 Neutrophils % 71 % Lymphocytes % 19 % Monocytes % 6 % Eosinophils % 2 % Basophils % 1 % Neutrophils # 5.4 (1.3-7.7) k/uL Lymphocytes # 1.4 (1.0-4.8) k/uL Monocytes # 0.4 (0-1.0) k/uL Eosinophils # 0.1 (0-0.7) k/uL Basophils # 0.1 (0-0.2) k/uL Sodium 141 (137-145) mmol/L Potassium 4.5 (3.5-5.1) mmol/L Chloride 106 (98-107) mmol/L Carbon Dioxide 25 (22-30) mmol/L Anion Gap 10 mmol/L BUN 17 (9-20) mg/dL Creatinine 0.82 (0.66-1.25) mg/dL Est GFR (CKD-EPI)AfAm >90 (>60 ml/min/1.73 sqM) Est GFR (CKD-EPI)NonAf >90 (>60 ml/min/1.73 sqM) Glucose 84 (74-99) mg/dL Plasma Lactic Acid Francisco Javier 1.2 (0.7-2.0) mmol/L Calcium 9.0 (8.4-10.2) mg/dL Total Bilirubin 0.8 (0.2-1.3) mg/dL AST 28 (17-59) U/L ALT 20 (4-49) U/L Alkaline Phosphatase 77 (38-126) U/L Total Protein 7.8 (6.3-8.2) g/dL Albumin 4.7 (3.5-5.0) g/dL Amylase 63 (30-110) U/L Lipase 135 (23-300) U/L Urine Color Urine Appearance (Clear) Urine pH (5.0-8.0) Ur Specific [place] (1.001-1.035) Urine Protein (Negative) Urine Glucose (UA) (Negative) Urine Ketones (Negative) Urine Blood (Negative) Urine Nitrite (Negative) Urine Bilirubin (Negative) Urine Urobilinogen (<2.0) mg/dL Ur Leukocyte Esterase (Negative) 08/01/23 Range/Units 15:28 WBC (3.8-10.6) k/uL RBC (4.30-5.90) m/uL Hgb (13.0-17.5) gm/dL Hct (39.0-53.0) % MCV (80.0-100.0) fL MCH (25.0-35.0) pg MCHC (31.0-37.0) g/dL RDW (11.5-15.5) % Plt Count (150-450) k/uL MPV Neutrophils % % Lymphocytes % % Monocytes % % Eosinophils % % Basophils % % Neutrophils # (1.3-7.7) k/uL Lymphocytes # (1.0-4.8) k/uL Monocytes # (0-1.0) k/uL Eosinophils # (0-0.7) k/uL Basophils # (0-0.2) k/uL Sodium (137-145) mmol/L Potassium (3.5-5.1) mmol/L Chloride (98-107) mmol/L Carbon Dioxide (22-30) mmol/L Anion Gap mmol/L BUN (9-20) mg/dL Creatinine (0.66-1.25) mg/dL Est GFR (CKD-EPI)AfAm (>60 ml/min/1.73 sqM) Est GFR (CKD-EPI)NonAf (>60 ml/min/1.73 sqM) Glucose (74-99) mg/dL Plasma Lactic Acid Francisco Javier (0.7-2.0) mmol/L Calcium (8.4-10.2) mg/dL Total Bilirubin (0.2-1.3) mg/dL AST (17-59) U/L ALT (4-49) U/L Alkaline Phosphatase (38-126) U/L Total Protein (6.3-8.2) g/dL Albumin (3.5-5.0) g/dL Amylase (30-110) U/L Lipase (23-300) U/L Urine Color Light Yellow Urine Appearance Clear (Clear) Urine pH 6.5 (5.0-8.0) Ur Specific [place] 1.029 (1.001-1.035) Urine Protein Negative (Negative) Urine Glucose (UA) Negative (Negative) Urine Ketones Negative (Negative) Urine Blood Negative (Negative) Urine Nitrite Negative (Negative) Urine Bilirubin Negative (Negative) Urine Urobilinogen <2.0 (<2.0) mg/dL Ur Leukocyte Esterase Negative (Negative) - Radiology Data Radiology results: report reviewed, image reviewed Disposition Clinical Impression: Blood in stool, Abdominal pain Disposition: HOME SELF-CARE Instructions (If sedation given, give patient instructions): Abdominal Pain (ED) Additional Instructions: Return to the emergency department with any new, worsening, or concerning symptoms. You can take the Bentyl up to 4 times daily for abdominal pain. Fol low-up with Dr. Khalil. Follow up with your primary care provider in 1-2 days. Prescriptions: Dicyclomine [Bentyl] 20 mg PO QID PRN #30 tablet PRN Reason: Pain Is patient prescribed a controlled substance at d/c from ED?: No Referrals: Alexandro Giron DO [Primary Care Provider] - 1-2 days Saúl Khalil MD [STAFF PHYSICIAN] - 1-2 days Time of Disposition: 18:11
[2023-08-01 14:51] VITALS: TEMP 98.1
[2023-08-01] MEDS: diphenhydrAMINE 50 MG/ML 1 ML VIAL IVP STA (14:54)
[2023-08-01] MEDS: FAMOTIDINE 20 MG/2 ML VIAL IV STA (14:56)
[2023-08-01] MEDS: MORPHINE SULFATE 2 MG/ML SYRINGE IVP STA (14:56)
[2023-08-01] MEDS: SODIUM CHLORIDE 0.9% 1,000 ML IV STA (14:57)
[2023-08-01 15:30] LABS: ALT 20 U/L (4-49); AST 28 U/L (17-59); African American GFR (CKD) >90 (>60 ml/min/1.73 sqM); Albumin 4.7 g/dL (3.5-5.0); Alkaline Phosphatase 77 U/L (38-126); Amylase 63 U/L (30-110); Anion Gap 10 mmol/L; Blood Urea Nitrogen 17 mg/dL (9-20); Carbon Dioxide 25 mmol/L (22-30); Chloride 106 mmol/L (98-107); Glucose 84 mg/dL (74-99); Lipase 135 U/L (23-300); Non-African American GFR(CKD) >90 (>60 ml/min/1.73 sqM); Potassium 4.5 mmol/L (3.5-5.1); Sodium 141 mmol/L (137-145); Total Bilirubin 0.8 mg/dL (0.2-1.3); Total Protein 7.8 g/dL (6.3-8.2)
[2023-08-01 15:46] LABS: Appearance,Urine Clear (Clear); Bilirubin,Urine Negative (Negative); Blood,Urine Negative (Negative); Color,Urine Light Yellow; Glucose,Urine (UA) Negative (Negative); Ketones,Urine Negative (Negative); Leukocyte Esterase,Urine Negative (Negative); Nitrite,Urine Negative (Negative); PH, Urine 6.5 (5.0-8.0); Protein,Urine Negative (Negative); Specific Gravity,Urine 1.029 (1.001-1.035); Urobilinogen,Urine <2.0 mg/dL (<2.0)
[2023-08-01 15:50] LABS: Basophils # (A) 0.1 k/uL (0-0.2); Basophils % (A) 1 %; Eosinophils # (A) 0.1 k/uL (0-0.7); Eosinophils % (A) 2 %; HGB 16.2 gm/dL (13.0-17.5); Lymphocytes # (A) 1.4 k/uL (1.0-4.8); Lymphocytes % (A) 19 %; MCHC 34.5 g/dL (31.0-37.0); MCV 89.8 fL (80.0-100.0); Mean Platelet Volume 7.8; Monocytes # (A) 0.4 k/uL (0-1.0); Monocytes % (A) 6 %; Neutrophils # (A) 5.4 k/uL (1.3-7.7); Neutrophils % (A) 71 %; Platelet Count 275 k/uL (150-450); RBC 5.24 m/uL (4.30-5.90); RDW 12.7 % (11.5-15.5); WBC 7.5 k/uL (3.8-10.6)
[2023-08-01 17:40] VITALS: RESP 16
--- NOTE | 2023-08-01 17:41 | CT ---
EXAMINATION TYPE: CT angio abdomen pelvis CT DLP: 2152.2 mGycm, Automated exposure control for dose reduction was used. DATE OF EXAM: 08/01/2023 3:40 PM COMPARISON: CT abdomen and pelvis 01/30/2023, and before back to 12/20/2021. . CLINICAL INDICATION:Male, 23 years old with history of abdominal pain, blood in colostomy bag; PHH, b lood in ostomy bag, abdominal pain TECHNIQUE: CTA examination abdomen and pelvis was performed per facility protocol. Scanning of the ab domen and pelvis done without contrast followed by arterial phase and [address] through t abdomen and pelvis. Multiplanar reformats and multiplanar mid imaging generated on a remote workst at[employer]. CT Contrast: Contrast used: 100 mL of Isovue 300 without and with IV Contrast, Oral contrast used: None FINDINGS: CTA Abdomen and pelvis: Unenhanced exam shows no significant atherosclerotic calcifications. No urinary tract calculi. Staple line material seen at the end of the rectal stump. No areas of abnormal increased attenuation are se en. Aorta is normal in course and caliber without evidence of significant atherosclerotic disease or diss ection flap. Celiac, superior mesenteric arteries are patent. Single left renal artery is patent. There are 2 righ t renal arteries, versus an early bifurcation, nevertheless these are patent. Normal aortic bifurcation. Common, external, internal iliac arteries are patent. The femoral arteries , bifurcations, proximal superficial femoral and profunda femoris arteries appear patent. No evidence of contrast extravasation or abnormal increased attenuation to suggest hemorrhage. Delayed imaging shows no abnormal contrast accumulation or hemorrhage. Non-CTA findings: There are some limitations due to the angiographic phase of imaging. LOWER CHEST: Lung bases are clear. Heart size is normal. ABDOMEN LIVER: Stable GALLBLADDER AND BILE DUCTS: Stable PANCREAS: Stable SPLEEN: Stable ADRENAL GLANDS: Stable KIDNEYS AND URETERS: Stable PELVIS BLADDER: Bladder is incompletely distended and does not contain significant contrast even on delayed imaging, limiting assessment. There is an approximately 18 mm nodular density abutting or within the wall of the left superior aspect of the bladder anteriorly just left of midline, with a small crescen t of low-attenuation along its bladder interface. Noncontrast attenuation is about 45 Hounsfield unit s, arterial phase about 50 Hounsfield units, and delayed phase about 54 Hounsfield units; this theref ore appears to be nonenhancing or minimally enhancing (which would be atypical for pheo). Upon analyz ing prior CTs, this has been present since the first CT we have 07/28/2016, but seems to have been sli ghtly larger at that time (up to 27 mm), however accurate measurements are especially difficult on th at scan due to the partially obscuring inflammatory changes in the adjacent colon (reportedly diverti culitis, please correlate with any available pathology results). This does appear separate from adjac ent bowel. REPRODUCTIVE: Unremarkable appearing prostate. ABDOMEN & PELVIS STOMACH AND BOWEL: Stomach and small bowel are nondistended, no evidence of obstruction or other acut e abnormality. Mild fatty infiltration at the ileocecal valve. Appendix appears normal. There is mode rate stool throughout the colon. Sigmoid colon enters the colostomy in the left anterior abdominal wa ll, which appears patent with stool and gas extending through and into the colostomy bag. As is passe s through the abdominal wall, the colonic lumen appears mildly circumferentially narrowed, but the ap pearance of this is unchanged compared to priors. There is no pneumatosis or other suggestion of isch emic change in this segment. No contrast extravasation or abnormal hyperdensity is seen. Scarring in the anterior abdominal wall and mild thickening of the umbilicus, similar to before. Distal rectal stump is grossly stable in appearance, allowing for differences in exam technique. Its morphology and wall thickening do not seem to be significantly changed. In the surrounding fat, multi ple prominent nodular densities are again seen. For example, a 15 mm nodule on the right is stable. S everal others also appear stable. However, there are some which appear slightly larger than before. F or example, a 15 mm nodule on the right image 170 series 501, and an 8 mm nodule on the left image 18 4. PERITONEUM/RETROPERITONEUM: No evidence of pneumoperitoneum or free fluid. VASCULATURE: Arteries are as described above. The IVC is stable and of normal caliber. LYMPH NODES: No enlarged lymph nodes are otherwise identified. SOFT TISSUE/ABDOMINAL WALL: No acute abnormality MUSCULOSKELETAL: Stable. No acute fracture or destructive lesion. IMPRESSION: 1. Patent CTA of the abdomen and pelvis. 2. No evidence of dissection, contrast extravasation, or otherwise abnormal collection of contrast. 3. Stable appearance of left lower quadrant colostomy as described. 4. Similar morphology of the rectal stump compared to previous, with grossly unchanged wall thickenin g. Some prominent perirectal nodules/nodes are again seen, most of which are stable but others may be slightly larger. These changes could be inflammatory/postinflammatory, however continued follow-up w ould be recommended to exclude metastatic disease (if there is a cancer history? Please correlate cli nically). 5. An 18 mm nodular density along the left superior aspect of the urinary bladder. Etiology is uncert ain, but a benign etiology is favored including neoplasm or postinflammatory pseudotumor. Please also correlate for any symptoms to suggest bladder pheochromocytoma.
[2023-08-01] MEDS: HYDROmorphone 1 MG/ML 1 ML SYRINGE IVP STA (17:45)
[2023-08-01] MEDS: ACET/COD 300 MG/30 MG STARTER PACK 6 TAB BTL PO STA (18:14)
[2023-08-01] MEDS: DIPHENOX-ATROP STARTER PACK 8 TAB BTL PO STA (18:15)
[2023-08-01] MEDS: DICYCLOMINE 20 MG TAB PO STA (18:17)
[2023-08-01] MEDS: DICYCLOMINE 10 MG/ML 2 ML AMP IM STA (18:18)
[2023-08-01 18:47] VITALS: BP 135/73; PULSE 71
== END 2023-08-01 18:26 | disposition home or self-care (01) ==
LOC: EC 14:22
DX: K92.1 Melena (principal); K57.92 Diverticulitis of intestine, part unspecified, without perforation or abscess without bleeding; F17.290 Nicotine dependence, other tobacco product, uncomplicated; Z93.3 Colostomy status; Z91.041 Radiographic dye allergy status; Z91.030 Bee allergy status; Z88.0 Allergy status to penicillin; Z88.8 Allergy status to other drugs, medicaments and biological substances
CPT/HCPCS: 36415; 80053; 82150; 83605; 83690; 85025; 81003; 74174; 99285; 96374; 96375 ×3; 96361 ×2; 96372; J1200; J0500; J3490; J2270; J1170; Q9967

== ENCOUNTER 2023-08-27 06:46 | Day surgery (SDC) | payer BC ==
[2023-08-25 12:00] VITALS: BMI 33.0
[2023-08-27] MEDS: LACTATED RINGERS 1,000 ML IV SCH (07:36)
[2023-08-27 07:53] VITALS: TEMP 97.8
[2023-08-27] MEDS ORDERED: PROPOFOL 10 MG/ML 20 ML VIAL IV ONE (08:02)
--- NOTE | 2023-08-27 08:20 | P.PCN ---
Date of Procedure: 08/27/23 Procedure(s) Performed: BRIEF HISTORY: Patient is a 24-year-old pleasant white male scheduled for an elective colonoscopy as a part of Evaluation of intermittent lower abdominal freddy with blood mucosa in this colostomy bag for the last few weeks duration. Patient had history of acute recurrent diverticulitis since age 13 and he underwent sigmoid colectomy in August 2020 with [facility]. He was admitted in October 2021 with recurrent abscess in the left colon at the site of anastomosis requiring another surgery with colostomy byDr. Khalil. Since then he is been having intermittent lower abdominal pain with bleeding from the ostomy site. He also has occasional rectal bleeding. PROCEDURE PERFORMED: Colonoscopy via colostomy and rectum with biopsies PREOPERATIVE DIAGNOSIS: Intermittent rectal bleeding and lower abdominal pain with occasional blood or mucus for the colostomy. IV sedation per Anesthesia. PROCEDURE: After informed consent was obtained, the patient, was brought into the endoscopy unit. IV sedation was administered by Anesthesia under continuous monitoring. Digital rectal examination was normal. Initially the Olympus CF-160 flexible video colonoscope was then inserted in the rectum And the Sami's pouch was examined. There was mucosal erythema and friability involving the entire Sami's pouch and multiple biopsies were done from this area. No ulcerations noted. The scope was then withdrawn. Continued to remain sedated . The colostomy that was removed. The Olympus CF 180 video colonoscope was inserted colostomy and gradually advanced into the cecum.Careful examination was performed as the scope was gradually being withdrawn. Ileocecal valve and the appendiceal orifice were visualized and appeared normal. Prep was excellent.Terminal ileum was intubated and appeared normal.Mucosa of the cecum, ascending colon, transverse colon, descending colon, appeared normal. Random biopsies were done from ascending and descending colon to rule out microscopic/collagenous colitis. The patient tolerated the procedure well. IMPRESSION: Colonoscopy via rectum revealed information of the Sami's pouch with mucosal erythema and friability but no ulcerations possibly related to dilation colitis. Status post multiple biopsies Colonoscopy via colostomy upto the cecum and terminal ileum appeared entirely normal with no evidence of colitisDiverticulosis. RECOMMENDATIONS: Findings of this examination were discussed with the patient As well as his family. He was advised to follow with the biopsy results. He'll be seen in office in 2-3 weeks..
[2023-08-27 08:42] VITALS: BP 122/54; PULSE 83; RESP 16
== END 2023-08-27 08:59 | disposition home or self-care (01) ==
LOC: ORWHC2ENDO 06:46
PROVIDERS: ATTEND Internal Medicine Gastroenterology
DX: K52.9 Noninfective gastroenteritis and colitis, unspecified (principal); K62.5 Hemorrhage of anus and rectum; K57.30 Diverticulosis of large intestine without perforation or abscess without bleeding; K82.8 Other specified diseases of gallbladder; Z79.899 Other long term (current) drug therapy; Z88.0 Allergy status to penicillin
CPT/HCPCS: 44388; 88305; J2704; 45380

== ENCOUNTER 2023-09-15 21:11 | Emergency (ER) | payer BC ==
[2023-09-15 21:57] VITALS: TEMP 99.2
--- NOTE | 2023-09-15 22:23 | ED ---
Abdominal Pain HPI - General Chief Complaint: Abdominal Pain Stated Complaint: Abd Pain-Colostomy bag Time Seen by Provider: 09/15/23 22:01 Source: patient Mode of arrival: ambulatory Limitations: no limitations - History of Present Illness Initial Comments: 23-year-old male with a past medical history significant for diverticulitis status post resection presented to the ED with complaints of abdominal pain. Patient states yesterday onset of some lower abdominal pain. Has not changed the contents of his ostomy bag so is unsure of any changes in bowel habits. Denies changes in urinary habits. No fever or chills. No chest pain shortness of breath. No other complaints at this time. - Related Data Previous Rx's Medication Instructions Recorded Dicyclomine [Bentyl] 20 mg PO QID PRN #30 tablet 08/01/23 Allergies Allergy/AdvReac Type Severity Reaction Status Date / Time bee pollen Allergy Unknown Verified 09/15/23 21:26 Iodinated Contrast Media AdvReac Vomiting Verified 09/15/23 21:26 [Iodinated Contrast Media - Oral and] Penicillins AdvReac Vomiting Verified 09/15/23 21:26 steroids AdvReac Nausea & Uncoded 09/15/23 21:26 Vomiting & Diarrhea Review of Systems ROS Statement: Those systems with pertinent positive or pertinent negative responses have been documented in the HPI. ROS Other: All systems not noted in ROS Statement are negative. Past Medical History Additional Past Medical History / Comment(s): Diverticulitis., abscess on bladder & lower right quadrant in abdomen-has MRSA infection, recently in [facility] for, PICC line for vanco. 02/2022 History of Any Multi-Drug Resistant Organisms: MRSA Date of last positivie culture/infection: abdomen MDRO Source:: December 2021 Past Surgical History: Bowel Resection Additional Past Surgical History / Comment(s): Colonoscopy., 08-13-20 sigmoidectomy [facility], PICC line, colostomy feb 2022, Past Anesthesia/Blood Transfusion Reactions: No Reported Reaction, Motion Sickness Additional Past Anesthesia/Blood Transfusion Reaction / Comment(s): HAD COLONOSCOPY AND DID WELL WITH SEDATION. no blood transfusion Past Psychological History: ADD/ADHD Smoking Status: Vaper Past Alcohol Use History: None Reported Past Drug Use History: Marijuana - Past Family History Mother Family Medical History: No Reported History Father Family Medical History: No Reported History General Exam Limitations: no limitations General appearance: alert, in no apparent distress Eye exam: Present: normal appearance Neck exam: Present: normal inspection Respiratory exam: Present: normal lung sounds bilaterally Cardiovascular Exam: Present: regular rate, normal rhythm GI/Abdominal exam: Present: soft (Diffuse abdominal tenderness to palpation however worse in the lower abdomen. No rebound guarding or rigidity. Bowel sounds present.). Absent: distended Neurological exam: Present: alert, oriented X3 Skin exam: Present: warm, dry Course Vital Signs 09/15/23 09/15/23 09/16/23 21:26 22:00 00:00 Temperature 99.2 F Pulse Rate 81 85 68 Respiratory 19 18 15 Rate Blood Pressure 130/83 125/76 112/66 O2 Sat by Pulse 98 98 98 Oximetry Medical Decision Making - Medical Decision Making Was pt. sent in by a medical professional or institution (, PA, COMMERCIAL BANKER, urgent care, hospital, or chcf...) When possible be specific @ -No Did you speak to anyone other than the patient for history (EMS, parent, family, police, friend...)? What history was obtained from this source @ -No Did you review nursing and triage notes (agree or disagree)? Why? @ -I reviewed and agree with nursing and triage notes Were old charts reviewed (outside hosp., previous admission, EMS record, old EKG, old radiological studies, urgent care reports/EKG's, chcf records)? Report findings @ -No old charts were reviewed Differential Diagnosis (chest pain, altered mental status, abdominal pain women, abdominal pain men, vaginal bleeding, weakness, fever, dyspnea, syncope, headache, dizziness, GI bleed, back pain, seizure, CVA, palpatations, mental health, musculoskeletal)? @ -Differential Abdominal Pain Men: Appendicitis, cholecystitis, diverticulosis, ischemic bowel, pancreatitis, hepatitis, UTI, gastroenteritis, AAA, incarcerated hernia, bowel obstruction, constipation, inflammatory bowel, hepatitis, peptic ulcer disease, splenic infarction, perforated viscus, testicular torsion, this is not meant to be an all-inclusive list EKG interpreted by me (3pts min.). @ -None X-rays interpreted by me (1pt min.). @ -None done CT interpreted by me (1pt min.). @ -CT abdomen pelvis interpreted me showing 7 mm circumferential wall thickening of short segment of small bowel and right abdomen pelvis surrounded by trace mesenteric stranding indicating enteritis, prominent central mesenteric lymph nodes, more prominent on the prior study surrounded by trace mesenteric stranding, focal lentiform thickening of the nonspecific, and skin thickening of the umbilicus which was not the visit began which may be the patient's baseline. U/S interpreted by me (1pt. min.). @ -None done What testing was considered but not performed or refused? (CT, X-rays, U/S, labs)? Why? @ -None What meds were considered but not given or refused? Why? @ -None Did you discuss the management of the patient with other professionals (professionals i.e. , PA, COMMERCIAL BANKER, lab, RT, psych nurse, hospice social worker, senior web engineer, teacher, fire officer, telehealth case manager)? Give summary @ -No Was smoking cessation discussed for >3mins.? @ -No Was critical care preformed (if so, how long)? @ -No Were there social determinants of health that impacted care today? How? (Homelessness, low income, unemployed, alcoholism, drug addiction, transportation, low edu. Level, literacy, decrease access to med. care, residential, rehab)? @ -No Was there de-escalation of care discussed even if they declined (Discuss DNR or withdrawal of care, Hospice)? DNR status @ -No What co-morbidities impacted this encounter? (DM, HTN, Smoking, COPD, CAD, Cancer, CVA, ARF, Chemo, Hep., AIDS, mental health diagnosis, sleep apnea, morbid obesity)? @ -None Was patient admitted / discharged? Hospital course, mention meds given and route, prescriptions, significant lab abnormalities, going to OR and other pertinent info. @ -Discharge 23-year-old male with a past medical history significant for diverticulitis s/p resection with ostomy in left lower quadrant presented ED with complaint abdominal pain. Patient reports yesterday onset of some diffuse lower abdominal pain worsening today prompting presentation to the ED for further evaluation. Laboratory studies reviewed. CBC unremarkable. Chemistry panel unremarkable. UA shows no evidence of infection. CT scan was performed which was significant for findings consistent with enteritis. Patient discharged home in stable condition advised close follow-up with his PCP. Discussed return precautions with patient who verbalized agreement. Undiagnosed new problem with uncertain prognosis? @ -No Drug Therapy requiring intensive monitoring for toxicity (Heparin, Nitro, Insulin, Cardizem)? @ -No Were any procedures done? @ -No Diagnosis/symptom? @ -Gastroenteritis Acute, or Chronic, or Acute on Chronic? @ -Acute Uncomplicated (without systemic symptoms) or Complicated (systemic symptoms)? @ -Uncomplicated Side effects of treatment? @ -No Exacerbation, Progression, or Severe Exacerbation? @ -No Poses a threat to life or bodily function? How? (Chest pain, [place], [place], pneumonia, PE, COPD, DKA, ARF, appy, cholecystitis, CVA, Diverticulitis, Homicidal, Suicidal, threat to staff... and all critical care pts) @ -No - Lab Data Result diagrams: 09/15/23 22:30 09/15/23 22:30 Lab Results 09/15/23 09/15/23 09/15/23 Range/Units 22:30 22:30 22:30 WBC 10.5 (3.8-10.6) k/uL RBC 5.48 (4.30-5.90) m/uL Hgb 16.2 (13.0-17.5) gm/dL Hct 49.3 (39.0-53.0) % MCV 90.0 (80.0-100.0) fL MCH 29.7 (25.0-35.0) pg MCHC 33.0 (31.0-37.0) g/dL RDW 12.2 (11.5-15.5) % Plt Count 285 (150-450) k/uL MPV 7.3 Neutrophils % 77 % Lymphocytes % 14 % Monocytes % 6 % Eosinophils % 2 % Basophils % 1 % Neutrophils # 8.1 H (1.3-7.7) k/uL Lymphocytes # 1.4 (1.0-4.8) k/uL Monocytes # 0.6 (0-1.0) k/uL Eosinophils # 0.2 (0-0.7) k/uL Basophils # 0.1 (0-0.2) k/uL Sodium 139 (137-145) mmol/L Potassium 4.1 (3.5-5.1) mmol/L Chloride 105 (98-107) mmol/L Carbon Dioxide 24 (22-30) mmol/L Anion Gap 10 mmol/L BUN 15 (9-20) mg/dL Creatinine 0.72 (0.66-1.25) mg/dL Est GFR (CKD-EPI)AfAm >90 (>60 ml/min/1.73 sqM) Est GFR (CKD-EPI)NonAf >90 (>60 ml/min/1.73 sqM) Glucose 81 (74-99) mg/dL Plasma Lactic Acid Francisco Javier 0.9 (0.7-2.0) mmol/L Calcium 8.7 (8.4-10.2) mg/dL Total Bilirubin 1.2 (0.2-1.3) mg/dL AST 24 (17-59) U/L ALT 17 (4-49) U/L Alkaline Phosphatase 71 (38-126) U/L Total Protein 7.4 (6.3-8.2) g/dL Albumin 4.5 (3.5-5.0) g/dL Amylase 53 (30-110) U/L Lipase 62 (23-300) U/L Urine Color Urine Appearance (Clear) Urine pH (5.0-8.0) Ur Specific [place] (1.001-1.035) Urine Protein (Negative) Urine Glucose (UA) (Negative) Urine Ketones (Negative) Urine Blood (Negative) Urine Nitrite (Negative) Urine Bilirubin (Negative) Urine Urobilinogen (<2.0) mg/dL Ur Leukocyte Esterase (Negative) 09/16/23 Range/Units 01:01 WBC (3.8-10.6) k/uL RBC (4.30-5.90) m/uL Hgb (13.0-17.5) gm/dL Hct (39.0-53.0) % MCV (80.0-100.0) fL MCH (25.0-35.0) pg MCHC (31.0-37.0) g/dL RDW (11.5-15.5) % Plt Count (150-450) k/uL MPV Neutrophils % % Lymphocytes % % Monocytes % % Eosinophils % % Basophils % % Neutrophils # (1.3-7.7) k/uL Lymphocytes # (1.0-4.8) k/uL Monocytes # (0-1.0) k/uL Eosinophils # (0-0.7) k/uL Basophils # (0-0.2) k/uL Sodium (137-145) mmol/L Potassium (3.5-5.1) mmol/L Chloride (98-107) mmol/L Carbon Dioxide (22-30) mmol/L Anion Gap mmol/L BUN (9-20) mg/dL Creatinine (0.66-1.25) mg/dL Est GFR (CKD-EPI)AfAm (>60 ml/min/1.73 sqM) Est GFR (CKD-EPI)NonAf (>60 ml/min/1.73 sqM) Glucose (74-99) mg/dL Plasma Lactic Acid Francisco Javier (0.7-2.0) mmol/L Calcium (8.4-10.2) mg/dL Total Bilirubin (0.2-1.3) mg/dL AST (17-59) U/L ALT (4-49) U/L Alkaline Phosphatase (38-126) U/L Total Protein (6.3-8.2) g/dL Albumin (3.5-5.0) g/dL Amylase (30-110) U/L Lipase (23-300) U/L Urine Color Light Yellow Urine Appearance Clear (Clear) Urine pH 6.0 (5.0-8.0) Ur Specific [place] >1.050 H (1.001-1.035) Urine Protein Trace H (Negative) Urine Glucose (UA) Negative (Negative) Urine Ketones 2+ H (Negative) Urine Blood Negative (Negative) Urine Nitrite Negative (Negative) Urine Bilirubin Negative (Negative) Urine Urobilinogen <2.0 (<2.0) mg/dL Ur Leukocyte Esterase Negative (Negative) Disposition Clinical Impression: Gastroenteritis Disposition: HOME SELF-CARE Condition: Good Instructions (If sedation given, give patient instructions): Gastroenteritis (ED) Additional Instructions: Please return to the Emergency Department if symptoms worsen or any other concerns. Please use [id number] medications as needed for pain. Follow- up with your primary care provider and peanut separator. Is patient prescribed a controlled substance at d/c from ED?: No Referrals: Alexandro Giron DO [Primary Care Provider] - 1-2 days Time of Disposition: 02:05
[2023-09-15 22:37] LABS: Basophils # (A) 0.1 k/uL (0-0.2); Basophils % (A) 1 %; Eosinophils # (A) 0.2 k/uL (0-0.7); Eosinophils % (A) 2 %; HCT 49.3 % (39.0-53.0); HGB 16.2 gm/dL (13.0-17.5); Lymphocytes # (A) 1.4 k/uL (1.0-4.8); Lymphocytes % (A) 14 %; MCH 29.7 pg (25.0-35.0); Mean Platelet Volume 7.3; Monocytes # (A) 0.6 k/uL (0-1.0); Monocytes % (A) 6 %; Neutrophils # (A) 8.1 k/uL (1.3-7.7); Neutrophils % (A) 77 %; Platelet Count 285 k/uL (150-450); RBC 5.48 m/uL (4.30-5.90); RDW 12.2 % (11.5-15.5); WBC 10.5 k/uL (3.8-10.6)
[2023-09-15] MEDS: diphenhydrAMINE 50 MG/ML 1 ML VIAL IVP STA (22:49)
[2023-09-15] MEDS: FAMOTIDINE 20 MG/2 ML VIAL IV STA (22:49)
[2023-09-15] MEDS: methylPREDNISolone SOD SUCCI 125 MG/2 ML VIAL IV STA (22:49)
[2023-09-15 22:50] LABS: ALT 17 U/L (4-49); AST 24 U/L (17-59); African American GFR (CKD) >90 (>60 ml/min/1.73 sqM); Albumin 4.5 g/dL (3.5-5.0); Alkaline Phosphatase 71 U/L (38-126); Amylase 53 U/L (30-110); Anion Gap 10 mmol/L; Blood Urea Nitrogen 15 mg/dL (9-20); Calcium 8.7 mg/dL (8.4-10.2); Carbon Dioxide 24 mmol/L (22-30); Chloride 105 mmol/L (98-107); Glucose 81 mg/dL (74-99); Lipase 62 U/L (23-300); Non-African American GFR(CKD) >90 (>60 ml/min/1.73 sqM); Potassium 4.1 mmol/L (3.5-5.1); Sodium 139 mmol/L (137-145); Total Bilirubin 1.2 mg/dL (0.2-1.3); Total Protein 7.4 g/dL (6.3-8.2)
[2023-09-15] MEDS: HYDROmorphone 1 MG/ML 1 ML SYRINGE IVP STA (22:55)
[2023-09-15] MEDS: SODIUM CHLORIDE 0.9% 1,000 ML IV STA (22:55)
--- NOTE | 2023-09-16 00:31 | CT ---
EXAM: CT Abdomen and Pelvis With Intravenous Contrast CLINICAL HISTORY: lower abd pain hx diverticulitis s/p resection TECHNIQUE: Axial computed tomography images of the abdomen and pelvis with intravenous contrast. CTDI is 23.1 mGy and DLP is 1084 mGy-cm. This CT exam was performed using one or more of the following dose reduction techniques: automated exposure control, adjustment of the mA and/or kV according to patient size, and/or use of iterative reconstruction technique. Coronal and sagittal reformatted images were created and reviewed. 446 images COMPARISON: 01/30/23 FINDINGS: Lung bases: Unremarkable. No mass. No consolidation. ABDOMEN: Liver: Focal fatty infiltration in anterior segment 4A of the liver. Gallbladder and bile ducts: Unremarkable. No calcified stones. No ductal dilation. Pancreas: Unremarkable. No mass. No ductal dilation. Spleen: Unremarkable. No splenomegaly. Adrenals: Unremarkable. No mass. Kidneys and ureters: Unremarkable. No solid mass. No hydronephrosis. Stomach and bowel: 7 mm circumferential wall thickening of short segment of small bowel of right abdomen and pelvis surrounded by trace mesenteric stranding, indicating enteritis. Rectal closure suture. No obstruction. Left mid abdominal Hancock's pouch. PELVIS: Appendix: Normal appendix. Bladder: Focal lentiform thickening of the bladder dome measuring about 11 mm in maximal thickness best seen on series 203 image 66, 3.5 cm AP and transverse, best seen on series 202 image 47. Reproductive: Unremarkable as visualized. ABDOMEN and PELVIS: Intraperitoneal space: Unremarkable. No free air. No significant fluid collection. Bones/joints: Osteopenia. Moderate degenerative changes. Degenerative disc disease at L4-5 and L5-S1. Mild broad-based posterior disc extrusion in left subarticular region on series 201 image 53 abutting the anterior thecal sac. Soft tissues: Skin thickening of the umbilicus is again noted, can be patient's baseline or may suggest focal cellulitis. Midline abdominal/pelvic scar. Vasculature: Unremarkable. No abdominal aortic aneurysm. Lymph nodes: Prominent central mesenteric root lymph nodes, more prominent on the prior study surrounded by trace mesenteric stranding best seen on series 202 images 30-50. IMPRESSION: 1. 7 mm circumferential wall thickening of short segment of small bowel of right abdomen and pelvis surrounded by trace mesenteric stranding, indicating enteritis. 2. Prominent central mesenteric root lymph nodes, more prominent on the prior study surrounded by trace mesenteric stranding are nonspecific, likely reactive to small bowel findings. 3. Focal lentiform thickening of the bladder dome is nonspecific. Scarring from prior surgery, neoplastic and infectious etiologies should be considered. 4. Skin thickening of the umbilicus is again noted, can be patient's baseline or may suggest focal cellulitis.
[2023-09-16 01:26] LABS: Appearance,Urine Clear (Clear); Bilirubin,Urine Negative (Negative); Blood,Urine Negative (Negative); Color,Urine Light Yellow; Glucose,Urine (UA) Negative (Negative); Ketones,Urine 2+ (Negative); Leukocyte Esterase,Urine Negative (Negative); Nitrite,Urine Negative (Negative); Protein,Urine Trace (Negative); Specific Gravity,Urine >1.050 (1.001-1.035); Urobilinogen,Urine <2.0 mg/dL (<2.0)
[2023-09-16 01:28] VITALS: BP 112/66
[2023-09-16 02:22] VITALS: PULSE 86; RESP 16
== END 2023-09-16 02:29 | disposition home or self-care (01) ==
LOC: EC 21:11
DX: K52.9 Noninfective gastroenteritis and colitis, unspecified (principal); F17.290 Nicotine dependence, other tobacco product, uncomplicated; Z91.030 Bee allergy status; Z88.0 Allergy status to penicillin; Z91.041 Radiographic dye allergy status; Z88.8 Allergy status to other drugs, medicaments and biological substances
CPT/HCPCS: 80053; 82150; 83605; 83690; 85025; 74177; 99284; 96374; 96375 ×3; 96361 ×2; J1200; J3490; J1170; Q9967; J2919; 36415; 81003

== ENCOUNTER 2023-11-28 10:58 | Inpatient (IN) | payer BC ==
--- NOTE | 2023-11-28 11:35 | ED ---
Abdominal Pain HPI - General Chief Complaint: Abdominal Pain Stated Complaint: Weakness Time Seen by Provider: 11/28/23 11:10 Source: patient, family, RN notes reviewed Mode of arrival: ambulatory Limitations: no limitations - History of Present Illness Initial Comments: This is a 23-year-old male with a past medical history of colostomy who presents emergency department chief complaint of bloody output from his colostomy bag and abdominal pain that is worsened over the past 2 weeks. Patient states that he has had bloody output from his ostomy in the past however this has been more severe and has been associated with worsening abdominal pain over the past 2 weeks. Patient states that he has felt chilled and has had an episode of emesis in addition to waves of nausea over the last 2 weeks. urine has been darker colored despite increase in hydration- denies urinary symptoms. Patient follows with Dr. Islas. Patient states that he has an intermittent chest discomfort in the left side of his chest and associated palpitations and shortness of breath. He denies history of DVT, PE, recent prolonged travel, unilateral leg swelling or calf pain. - Related Data Home Medications Medication Instructions Recorded Confirmed Dicyclomine [Bentyl] 10 mg PO QID PRN 11/28/23 11/28/23 Ibuprofen [Motrin] 800 mg PO Q8H PRN 11/28/23 11/28/23 Allergies Allergy/AdvReac Type Severity Reaction Status Date / Time bee pollen Allergy Unknown Verified 11/28/23 17:35 Iodinated Contrast Media AdvReac Vomiting Verified 11/28/23 17:35 [Iodinated Contrast Media - Oral and] Penicillins AdvReac Vomiting Verified 11/28/23 17:35 steroids AdvReac Nausea & Uncoded 11/28/23 17:35 Vomiting & Diarrhea Review of Systems ROS Statement: Those systems with pertinent positive or pertinent negative responses have been documented in the HPI. ROS Other: All systems not noted in ROS Statement are negative. Past Medical History Additional Past Medical History / Comment(s): Diverticulitis., abscess on bladder & lower right quadrant in abdomen-has MRSA infection, recently in [facility] for, PICC line for vanco. 02/2022 History of Any Multi-Drug Resistant Organisms: MRSA Date of last positivie culture/infection: abdomen MDRO Source:: December 2021 Past Surgical History: Bowel Resection Additional Past Surgical History / Comment(s): Colonoscopy., 08-13-20 sigmoidectomy @[facility], PICC line, colostomy feb 2022, Past Anesthesia/Blood Transfusion Reactions: No Reported Reaction, Motion Sickness Additional Past Anesthesia/Blood Transfusion Reaction / Comment(s): HAD COLONOS COPY AND DID WELL WITH SEDATION. no blood transfusion Past Psychological History: ADD/ADHD Smoking Status: Vaper Past Alcohol Use History: None Reported Past Drug Use History: Marijuana - Past Family History Mother Family Medical History: No Reported History Father Family Medical History: No Reported History General Exam Limitations: no limitations General appearance: alert, in no apparent distress Head exam: Present: atraumatic, normocephalic, normal inspection Eye exam: Present: normal appearance, PERRL, EOMI. Absent: scleral icterus, conjunctival injection, periorbital swelling ENT exam: Present: normal exam, mucous membranes moist Neck exam: Present: normal inspection. Absent: tenderness, meningismus, lymphadenopathy Respiratory exam: Present: normal lung sounds bilaterally. Absent: respiratory distress, wheezes, rales, rhonchi, stridor Cardiovascular Exam: Present: regular rate, normal rhythm, normal heart sounds. Absent: systolic murmur, diastolic murmur, rubs, gallop, clicks GI/Abdominal exam: Present: soft, tenderness (diffuse), normal bowel sounds, other (left ostomy, bloody output). Absent: distended, guarding, rebound, rigid, organomegaly Extremities exam: Present: normal inspection, full ROM, normal capillary refill. Absent: tenderness, pedal edema, joint swelling, calf tenderness Back exam: Present: normal inspection Neurological exam: Present: alert, oriented X3, CN II-XII intact Psychiatric exam: Present: normal affect, normal mood Skin exam: Present: warm, dry, intact, normal color. Absent: rash Course Vital Signs 11/28/23 11/28/23 11/28/23 11:09 15:01 19:00 Temperature 98.4 F Pulse Rate 96 91 Respiratory 18 18 Rate Blood Pressure 130/76 119/68 120/69 O2 Sat by Pulse 97 98 Oximetry 11/28/23 21:09 Temperature 99.6 F Pulse Rate 72 Respiratory 16 Rate Blood Pressure 118/59 O2 Sat by Pulse 98 Oximetry Medical Decision Making - Medical Decision Making Was pt. sent in by a medical professional or institution (Dr., PA, JINRIKISHA DRIVER, urgent care, hospital, or alf...) When possible be specific @ -No Did you speak to anyone other than the patient for history (EMS, parent, family, police, friend...)? What history was obtained from this source @ -To the patient's mother at bedside he states the patient has a complex history of abdominal surgeries that started when he was 13 years old due to complication from diverticulitis and he had a MRSA infection of the abdomen. Did you review nursing and triage notes (agree or disagree)? Why? @ -I reviewed and agree with nursing and triage notes Were old charts reviewed (outside hosp., previous admission, EMS record, old EKG, old radiological studies, urgent care reports/EKG's, alf records)? Report findings @ -No old charts were reviewed Differential Diagnosis (chest pain, altered mental status, abdominal pain women, abdominal pain men, vaginal bleeding, weakness, fever, dyspnea, syncope, headache, dizziness, GI bleed, back pain, seizure, CVA, palpatations, mental health, musculoskeletal)? @ -Differential Abdominal Pain Men: Appendicitis, cholecystitis, diverticulosis, ischemic bowel, pancreatitis, hepatitis, UTI, gastroenteritis, AAA, incarcerated hernia, bowel obstruction, co nstipation, inflammatory bowel, hepatitis, peptic ulcer disease, splenic infarction, perforated viscus, testicular torsion, this is not meant to be an all-inclusive list EKG interpreted by me (3pts min.). @ -completed at 1137, sinus rhythm with sinus arrhythmia, ventricular rate 91, [place] interval 137, QTc 380. No acute signs of ischemia. X-rays interpreted by me (1pt min.). @ -None done CT interpreted by me (1pt min.). @ -CT the abdomen and pelvis with contrast reveals postsurgical changes including a left lower quadrant ostomy unchanged in appearance as compared to previous CT scan on 09/15/2023, there is no bowel obstruction or inflammation, no free intraperitoneal air or fluid. chest CTA no evidence of pulmonary embolism. U/S interpreted by me (1pt. min.). @ -None done What testing was considered but not performed or refused? (CT, X-rays, U/S, labs)? Why? @ -None What meds were considered but not given or refused? Why? @ -None Did you discuss the management of the patient with other professionals (professionals i.e. , PA, JINRIKISHA DRIVER, lab, RT, psych nurse, social worker school, analytical scientist, teacher, retail loan officer, nurse case manager)? Give summary @ -spoke with general surgeon, Dr. Reis, in regard to the patient's case. Recommended the patient be admitted pain control and colonoscopy ordered for further evaluation of abdominal pain and GI bleeding. Was smoking cessation discussed for >3mins.? @ -No Was critical care preformed (if so, how long)? @ -No Were there social determinants of health that impacted care today? How? (Homelessness, low income, unemployed, alcoholism, drug addiction, transportation, low edu. Level, literacy, decrease access to med. care, [facility], rehab)? @ -No Was there de-escalation of care discussed even if they declined (Discuss DNR or withdrawal of care, Hospice)? DNR status @ -No What co-morbidities impacted this encounter? (DM, HTN, Smoking, COPD, CAD, Cancer, CVA, ARF, Chemo, Hep., AIDS, mental health diagnosis, sleep apnea, morbid obesity)? @ -None Was patient admitted / discharged? Hospital course, mention meds given and route, prescriptions, significant lab abnormalities, going to OR and other pertinent info. @ -Bedded. Four 23-year-old male with abdominal pain and GI bleed. On examination there is noted dark red bloody output from the patient's colostomy. There is diffuse abdominal pain of the abdomen. Additionally, patient is stating that he has been having chest pain and shortness of breath and intermittent palpitations. EKG no acute signs of ischemia or arrhythmias. Patient will be provided with pain medication pending results of labs and CT. CBC and CMP unremarkable, troponin nonelevated less than 0.012. amylase and lipase within normal limits. Patient's coagulation profile relays an elevated D-dimer level 5.11. Due to patient's history with shortness of breath and heart palpitations concern for PE therefore CT of the chest is ordered. CT of the chest negative for acute pulmonary embolism. Neurosurgeon, Dr. Orr, recommends that patient be admitted for pain control and colonoscopy for further evaluation of diffuse abdominal pain and GI bleed with colostomy. Discussed with Dr. Guzman. Undiagnosed new problem with uncertain prognosis? @ -No Drug Therapy requiring intensive monitoring for toxicity (Heparin, Nitro, Insulin, Cardizem)? @ -No Were any procedures done? @ -No Diagnosis/symptom? @ -abdominal pain, GI bleed Acute, or Chronic, or Acute on Chronic? @ -Acute Uncomplicated (without systemic symptoms) or Complicated (systemic symptoms)? @ -complicated Side effects of treatment? @ -No Exacerbation, Progression, or Severe Exacerbation? @ -No Poses a threat to life or bodily function? How? (Chest pain, USA, MS, pneumonia, PE, COPD, DKA, ARF, appy, cholecystitis, CVA, Diverticulitis, Homicidal, Suicidal, threat to staff... and all critical care pts) @ -No - Lab Data Result diagrams: 11/28/23 11:34 11/28/23 11:34 Lab Results 11/28/23 11/28/23 11/28/23 Range/Units 11:34 11:34 11:34 WBC 10.1 (3.8-10.6) k/uL RBC 4.79 (4.30-5.90) m/uL Hgb 14.8 (13.0-17.5) gm/dL Hct 42.5 (39.0-53.0) % MCV 88.8 (80.0-100.0) fL MCH 30.8 (25.0-35.0) pg MCHC 34.7 (31.0-37.0) g/dL RDW 12.9 (11.5-15.5) % Plt Count 400 (150-450) k/uL MPV 6.9 Neutrophils % 75 % Lymphocytes % 13 % Monocytes % 7 % Eosinophils % 3 % Basophils % 1 % Neutrophils # 7.5 (1.3-7.7) k/uL Lymphocytes # 1.3 (1.0-4.8) k/uL Monocytes # 0.7 (0-1.0) k/uL Eosinophils # 0.3 (0-0.7) k/uL Basophils # 0.1 (0-0.2) k/uL PT 12.0 (10.0-12.5) sec INR 1.1 (<1.2) APTT 25.6 (22.0-30.0) sec D-Dimer 5.11 H (<0.60) mg/L FEU Sodium (137-145) mmol/L Potassium (3.5-5.1) mmol/L Chloride (98-107) mmol/L Carbon Dioxide (22-30) mmol/L Anion Gap mmol/L BUN (9-20) mg/dL Creatinine (0.66-1.25) mg/dL Est GFR (CKD-EPI)AfAm (>60 ml/min/1.73 sqM) Est GFR (CKD-EPI)NonAf (>60 ml/min/1.73 sqM) Glucose (74-99) mg/dL Calcium (8.4-10.2) mg/dL Magnesium (1.6-2.3) mg/dL Total Bilirubin (0.2-1.3) mg/dL AST (17-59) U/L ALT (4-49) U/L Alkaline Phosphatase (38-126) U/L Troponin I (0.000-0.034) ng/mL Total Protein (6.3-8.2) g/dL Albumin (3.5-5.0) g/dL Amylase (30-110) U/L Lipase (23-300) U/L Urine Color Urine Appearance (Clear) Urine pH (5.0-8.0) Ur Specific [place] (1.001-1.035) Urine Protein (Negative) Ur Protein Confirm (Negative) Urine Glucose (UA) (Negative) Urine Ketones (Negative) Urine Blood (Negative) Urine Nitrite (Negative) Urine Bilirubin (Negative) Ur Bilirubin Confirm (Negative) Urine Urobilinogen (<2.0) mg/dL Ur Leukocyte Esterase (Negative) Urine RBC (0-5) /hpf Urine Red Cell Clumps (None) /hpf Urine WBC (0-5) /hpf Urine WBC Clumps (None) /hpf Ur Squamous Epith Cells (0-4) /hpf Ur Transition Epith Cell (0-1) /hpf Ur Renal Epithelial Cell (0) /hpf Calcium Carbonate Cryst (None) /hpf Calcium Phosphate Cryst (None) /hpf Calcium Oxalate Crystal (None) /hpf Leucine Crystals (None) /hpf Cystine Crystals (None Seen) /hpf Uric Acid Crystals (None) /hpf Triple Phos Crystals (None) /hpf Tyrosine Crystals (None) /hpf Other Crystals (None) /hpf Amorphous Sediment (None) /hpf Urine Bacteria (None) /hpf Cellular Casts (0) /lpf Epithelial Casts (0) /lpf Fatty Casts (0) /lpf Hyaline Casts (0-2) /lpf Granular Casts (0) /lpf Waxy Casts (0) /lpf Broad Casts (0) /lpf RBC Casts (0) /lpf WBC Casts (0) /lpf Other Casts (0) /lpf Urine Mucus (None) /hpf Urine Trichomonas (None) /hpf Ur Yeast w Hyphae (None) /hpf Urine Yeast (Budding) (None) /hpf Ur Oval Fat Bodies (None) /hpf 11/28/23 11/28/23 11/28/23 Range/Units 11:34 11:34 13:44 WBC (3.8-10.6) k/uL RBC (4.30-5.90) m/uL Hgb (13.0-17.5) gm/dL Hct (39.0-53.0) % MCV (80.0-100.0) fL MCH (25.0-35.0) pg MCHC (31.0-37.0) g/dL RDW (11.5-15.5) % Plt Count (150-450) k/uL MPV Neutrophils % % Lymphocytes % % Monocytes % % Eosinophils % % Basophils % % Neutrophils # (1.3-7.7) k/uL Lymphocytes # (1.0-4.8) k/uL Monocytes # (0-1.0) k/uL Eosinophils # (0-0.7) k/uL Basophils # (0-0.2) k/uL PT (10.0-12.5) sec INR (<1.2) APTT (22.0-30.0) sec D-Dimer (<0.60) mg/L FEU Sodium 134 L (137-145) mmol/L Potassium 4.1 (3.5-5.1) mmol/L Chloride 101 (98-107) mmol/L Carbon Dioxide 24 (22-30) mmol/L Anion Gap 9 mmol/L BUN 16 (9-20) mg/dL Creatinine 1.04 (0.66-1.25) mg/dL Est GFR (CKD-EPI)AfAm >90 (>60 ml/min/1.73 sqM) Est GFR (CKD-EPI)NonAf >90 (>60 ml/min/1.73 sqM) Glucose 84 (74-99) mg/dL Calcium 8.8 (8.4-10.2) mg/dL Magnesium 1.6 (1.6-2.3) mg/dL Total Bilirubin 1.0 (0.2-1.3) mg/dL AST 23 (17-59) U/L ALT 16 (4-49) U/L Alkaline Phosphatase 65 (38-126) U/L Troponin I <0.012 (0.000-0.034) ng/mL Total Protein 6.9 (6.3-8.2) g/dL Albumin 4.0 (3.5-5.0) g/dL Amylase 31 (30-110) U/L Lipase 24 (23-300) U/L Urine Color Yellow Urine Appearance Clear (Clear) Urine pH 5.5 (5.0-8.0) Ur Specific [employer] [place] 1.035 (1.001-1.035) Urine Protein Trace H (Negative) Ur Protein Confirm (Negative) Urine Glucose (UA) Negative (Negative) Urine Ketones Trace H (Negative) Urine Blood Negative (Negative) Urine Nitrite Negative (Negative) Urine Bilirubin Negative (Negative) Ur Bilirubin Confirm (Negative) Urine Urobilinogen <2.0 (<2.0) mg/dL Ur Leukocyte Esterase Negative (Negative) Urine RBC (0-5) /hpf Urine Red Cell Clumps (None) /hpf Urine WBC (0-5) /hpf Urine WBC Clumps (None) /hpf Ur Squamous Epith Cells (0-4) /hpf Ur Transition Epith Cell (0-1) /hpf Ur Renal Epithelial Cell (0) /hpf Calcium Carbonate Cryst (None) /hpf Calcium Phosphate Cryst (None) /hpf Calcium Oxalate Crystal (None) /hpf Leucine Crystals (None) /hpf Cystine Crystals (None Seen) /hpf Uric Acid Crystals (None) /hpf Triple Phos Crystals (None) /hpf Tyrosine Crystals (None) /hpf Other Crystals (None) /hpf Amorphous Sediment (None) /hpf Urine Bacteria (None) /hpf Cellular Casts (0) /lpf Epithelial Casts (0) /lpf Fatty Casts (0) /lpf Hyaline Casts (0-2) /lpf Granular Casts (0) /lpf Waxy Casts (0) /lpf Broad Casts (0) /lpf RBC Casts (0) /lpf WBC Casts (0) /lpf Other Casts (0) /lpf Urine Mucus (None) /hpf Urine Trichomonas (None) /hpf Ur Yeast w Hyphae (None) /hpf Urine Yeast (Budding) (None) /hpf Ur Oval Fat Bodies (None) /hpf Disposition Clinical Impression: Abdominal pain, GI bleed Disposition: ADMITTED IP TO [facility] Condition: Poor Is patient prescribed a controlled substance at d/c from ED?: No Decision to Admit Reason: Admit from EC Decision Date: 11/28/23 Decision Time: 20:26
[2023-11-28] MEDS: ONDANSETRON 4 MG/2 ML VIAL IVP STA (12:13)
[2023-11-28] MEDS: SODIUM CHLORIDE 0.9% 1,000 ML IV STA (12:14)
[2023-11-28] MEDS: MORPHINE SULFATE 2 MG/ML SYRINGE IVP ONE ×3 (12:14→18:54)
--- NOTE | 2023-11-28 12:52 | CT ---
EXAMINATION TYPE: CT abdomen pelvis w con DATE OF EXAM: 11/28/2023 COMPARISON: 09/15/2023 HISTORY: abd pain/ bleeding from ostomy CT DLP: 926.2 mGycm Automated exposure control for dose reduction was used. TECHNIQUE: Helical acquisition of images was performed from the lung bases through the pelvis. CONTRAST: Performed without Oral Contrast and with IV Contrast, patient injected with 100 mL of Isovue 300. FINDINGS: The lung bases are clear. The gallbladder is normal without distention, wall thickening, pericholecystic fluid or gallstones. T here is no biliary ductal dilatation. There is no focal mass or organomegaly involving the liver, pancreas, spleen or adrenal glands. There is a focal area of fatty infiltration in the anterior left lobe of the liver. There is no solid renal mass or hydronephrosis and there is homogeneous contrast enhancement of the r enal parenchyma. The caliber the abdominal aorta is normal is no retroperitoneal adenopathy or hemorr yajaira. There is a left lower quadrant ostomy unchanged in appearance compared to previous. There are anastom otic sutures at the rectosigmoid junction. There is no bowel obstruction or inflammation. There is no free intraperitoneal air or fluid. No pelvic mass, free fluid, abscess or adenopathy. The osseous structures and soft tissues are intact. IMPRESSION: Postsurgical changes as described above. No acute changes within the abdomen or pelvis.
[2023-11-28 12:57] LABS: ALT 16 U/L (4-49); AST 23 U/L (17-59); African American GFR (CKD) >90 (>60 ml/min/1.73 sqM); Alkaline Phosphatase 65 U/L (38-126); Amylase 31 U/L (30-110); Anion Gap 9 mmol/L; Blood Urea Nitrogen 16 mg/dL (9-20); Calcium 8.8 mg/dL (8.4-10.2); Carbon Dioxide 24 mmol/L (22-30); Chloride 101 mmol/L (98-107); Glucose 84 mg/dL (74-99); Lipase 24 U/L (23-300); Magnesium 1.6 mg/dL (1.6-2.3); Non-African American GFR(CKD) >90 (>60 ml/min/1.73 sqM); Potassium 4.1 mmol/L (3.5-5.1); Sodium 134 mmol/L (137-145); Total Protein 6.9 g/dL (6.3-8.2)
[2023-11-28 13:09] LABS: Basophils # (A) 0.1 k/uL (0-0.2); Basophils % (A) 1 %; Eosinophils # (A) 0.3 k/uL (0-0.7); Eosinophils % (A) 3 %; HCT 42.5 % (39.0-53.0); HGB 14.8 gm/dL (13.0-17.5); Lymphocytes # (A) 1.3 k/uL (1.0-4.8); Lymphocytes % (A) 13 %; MCH 30.8 pg (25.0-35.0); MCHC 34.7 g/dL (31.0-37.0); MCV 88.8 fL (80.0-100.0); Mean Platelet Volume 6.9; Monocytes # (A) 0.7 k/uL (0-1.0); Monocytes % (A) 7 %; Neutrophils # (A) 7.5 k/uL (1.3-7.7); Neutrophils % (A) 75 %; Platelet Count 400 k/uL (150-450); RBC 4.79 m/uL (4.30-5.90); RDW 12.9 % (11.5-15.5); WBC 10.1 k/uL (3.8-10.6)
[2023-11-28 13:14] LABS: INR 1.1 (<1.2); Partial Thromboplastin Time 25.6 sec (22.0-30.0)
[2023-11-28 14:05] LABS: Appearance,Urine Clear (Clear); Bilirubin,Urine Negative (Negative); Blood,Urine Negative (Negative); Color,Urine Yellow; Glucose,Urine (UA) Negative (Negative); Ketones,Urine Trace (Negative); Leukocyte Esterase,Urine Negative (Negative); Nitrite,Urine Negative (Negative); PH, Urine 5.5 (5.0-8.0); Protein,Urine Trace (Negative); Specific Gravity,Urine 1.035 (1.001-1.035); Urobilinogen,Urine <2.0 mg/dL (<2.0)
--- NOTE | 2023-11-28 14:13 | CT ---
EXAMINATION TYPE: CT chest angio for PE DATE OF EXAM: 11/28/2023 COMPARISON: HISTORY: Elevated D-dimer, CP CT DLP: 410.9 mGycm Automated exposure control for dose reduction was used. CONTRAST: CT Chest for pulmonary embolism performed with with IV Contrast, patient injected with 80 mL of Isovu e 370. FINDINGS: LUNGS: The lungs are grossly clear, there is no concerning parenchymal mass or nodule identified. T here is no pleural effusion or pneumothorax seen. The tracheobronchial tree is patent. MEDIASTINUM: There is satisfactory enhancement of the pulmonary artery and its branches, there is no CT evidence for pulmonary embolism. There are no greater than 1 cm hilar or mediastinal lymph nodes. No pericardial effusion is seen. OTHER: There is a mildly enlarged 15 mm right hilar lymph node. IMPRESSION: 1. No evidence of pulmonary embolism. 2. Mild right hilar lymphadenopathy as described above. Follow-up is recommended. Follow-up recommendations for incidental pulmonary nodules are per [employer] or [employer].
[2023-11-28] MEDS ORDERED: NALOXONE 0.4 MG/ML 1 ML VIAL IV PRN (20:24)
[2023-11-28] MEDS: SODIUM CHLORIDE 0.9% 1,000 ML IV SCH (21:01)
[2023-11-28] MEDS: HYDROmorphone 1 MG/ML 1 ML SYRINGE IVP PRN (21:39)
--- NOTE | 2023-11-29 01:29 | P.GSCN ---
History of Present Illness Consult date: 11/28/23 Reason for Consult: abdominal pain/gi bleed History of present illness: This is a 23-year-old male with a past medical history of colostomy who presents emergency department chief complaint of bloody output from his colostomy bag and abdominal pain that is worsened over the past 2 weeks. Patient states that he has had bloody output from his ostomy in the past however this has been more severe and has been associated with worsening abdominal pain over the past 2 weeks. Patient states that he has felt chilled and has had an episode of emesis in addition to waves of nausea over the last 2 weeks. urine has been darker colored despite increase in hydration- denies urinary symptoms. Patient follows with Dr. Islas. Patient states that he has an intermittent chest discomfort in the left side of his chest and associated palpitations and shortness of breath. He denies history of DVT, PE, recent prolonged travel, unilateral leg swelling o r calf pain. Review of Systems All systems: negative Past Medical History Additional Past Medical History / Comment(s): Diverticulitis., abscess on bladder & lower right quadrant in abdomen-has MRSA infection, recently in [facility] for, PICC line for vanco. 02/2022 History of Any Multi-Drug Resistant Organisms: MRSA Year Discovered:: abdomen MDRO Source:: December 2021 Past Surgical History: Bowel Resection Additional Past Surgical History / Comment(s): Colonoscopy., 08-13-20 sigmoidectomy @[facility], PICC line, colostomy feb 2022, Past Anesthesia/Blood Transfusion Reactions: No Reported Reaction, Motion Sickness Additional Past Anesthesia/Blood Transfusion Reaction / Comm: HAD COLONOSCOPY AND DID WELL WITH SEDATION. no blood transfusion Past Psychological History: ADD/ADHD Smoking Status: Vaper Past Alcohol Use History: None Reported Past Drug Use History: Marijuana - Past Family History Mother Family Medical History: No Reported History Father Family Medical History: No Reported History Medications and Allergies Home Medications Medication Instructions Recorded Confirmed Type Dicyclomine [Bentyl] 10 mg PO QID PRN 11/28/23 11/28/23 History Ibuprofen [Motrin] 800 mg PO Q8H PRN 11/28/23 11/28/23 History Allergies Allergy/AdvReac Type Severity Reaction Status Date / Time bee pollen Allergy Unknown Verified 11/28/23 17:35 Iodinated Contrast Media AdvReac Vomiting Verified 11/28/23 17:35 [Iodinated Contrast Media - Oral and] Penicillins AdvReac Vomiting Verified 11/28/23 17:35 steroids AdvReac Nausea & Uncoded 11/28/23 17:35 Vomiting & Diarrhea Surgical - Exam Osteopathic Statement: *. No significant issues noted on an osteopathic structural exam other than those noted in the History and Physical/Consult. Vital Signs Temp Pulse Resp BP Pulse Ox 98.4 F 96 18 130/76 97 11/28/23 11:09 11/28/23 11:09 11/28/23 11:09 11/28/23 11:09 11/28/23 11:09 gen: nad cv: rrr pul: non labored breathing abd: soft, minimally tender to palpation, no guarding or rebound tenderness, ostomy pink/patent/producing semibloody stool Results - Labs 11/28/23 11:34 11/28/23 11:34 Abnormal Lab Results - Last 24 Hours (Table) 11/28/23 11/28/23 11/28/23 Range/Units 11:34 11:34 13:44 D-Dimer 5.11 H (<0.60) mg/L FEU Sodium 134 L (137-145) mmol/L Urine Protein Trace H (Negative) Urine Ketones Trace H (Negative) Diabetes panel 11/28/23 Range/Units 11:34 Sodium 134 L (137-145) mmol/L Potassium 4.1 (3.5-5.1) mmol/L Chloride 101 (98-107) mmol/L Carbon Dioxide 24 (22-30) mmol/L BUN 16 (9-20) mg/dL Creatinine 1.04 (0.66-1.25) mg/dL Glucose 84 (74-99) mg/dL Calcium 8.8 (8.4-10.2) mg/dL AST 23 (17-59) U/L ALT 16 (4-49) U/L Alkaline Phosphatase 65 (38-126) U/L Total Protein 6.9 (6.3-8.2) g/dL Albumin 4.0 (3.5-5.0) g/dL Calcium panel 11/28/23 Range/Units 11:34 Calcium 8.8 (8.4-10.2) mg/dL Albumin 4.0 (3.5-5.0) g/dL Pituitary panel 11/28/23 Range/Units 11:34 Sodium 134 L (137-145) mmol/L Potassium 4.1 (3.5-5.1) mmol/L Chloride 101 (98-107) mmol/L Carbon Dioxide 24 (22-30) mmol/L BUN 16 (9-20) mg/dL Creatinine 1.04 (0.66-1.25) mg/dL Glucose 84 (74-99) mg/dL Calcium 8.8 (8.4-10.2) mg/dL Adrenal panel 11/28/23 Range/Units 11:34 Sodium 134 L (137-145) mmol/L Potassium 4.1 (3.5-5.1) mmol/L Chloride 101 (98-107) mmol/L Carbon Dioxide 24 (22-30) mmol/L BUN 16 (9-20) mg/dL Creatinine 1.04 (0.66-1.25) mg/dL Glucose 84 (74-99) mg/dL Calcium 8.8 (8.4-10.2) mg/dL Total Bilirubin 1.0 (0.2-1.3) mg/dL AST 23 (17-59) U/L ALT 16 (4-49) U/L Alkaline Phosphatase 65 (38-126) U/L Total Protein 6.9 (6.3-8.2) g/dL Albumin 4.0 (3.5-5.0) g/dL Assessment and Plan Assessment: 23 yo male s/p colostomy 3 years ago 2/2 diverticulitis -bloody output from ostomy -hgb stable -subjective pain Will discuss w/ surgeon regarding possible scope on thursday, keep npo for now Time with Patient: Greater than 30
[2023-11-29] MEDS: oxyCODONE-APAP 5-325MG 1 EACH TAB PO PRN (07:35)
[2023-11-29 10:06] LABS: Basophils # (A) 0.09 X 10*3/uL (0.00-0.10); Basophils % (A) 0.7 %; Eosinophils # (A) 0.74 X 10*3/uL (0.04-0.35); Eosinophils % (A) 5.8 %; HCT 40.3 % (39.6-50.0); HGB 13.4 g/dL (13.0-17.0); Lymphocytes # (A) 1.38 X 10*3/uL (0.90-5.00); Lymphocytes % (A) 10.8 %; MCH 29.6 pg (27.0-32.0); MCHC 33.3 g/dL (32.0-37.0); MCV 89.2 FL (80.0-97.0); Mean Platelet Volume 9.6 FL (9.5-12.2); Monocytes # (A) 1.24 X 10*3/uL (0.20-1.00); Monocytes % (A) 9.7 %; NRBC Per 100 WBC 0 X 10*3/uL (0.00-0.01); Neutrophils # (A) 9.22 X 10*3/uL (1.80-7.70); Neutrophils % (A) 72.3 %; Platelet Count 313 X 10*3/uL (140-440); RBC 4.52 X 10*6/uL (4.40-5.60); WBC 12.76 X 10*3/uL (4.50-10.00)
[2023-11-29 10:34] LABS: ALT 11 U/L (10-49); AST 15 U/L (14-35); Albumin 3.5 g/dL (3.8-4.9); Albumin/Globulin Ratio 1.46 Ratio (1.60-3.17); Alkaline Phosphatase 64 U/L (41-126); BUN/Creat Ratio 9.22 Ratio (12.00-20.00); Blood Urea Nitrogen 8.3 mg/dL (9.0-27.0); Calcium 8.1 mg/dL (8.7-10.3); Carbon Dioxide 21.7 mmol/L (21.6-31.8); Chloride 100 mmol/L (96-109); Globulin 2.4 g/dL (1.6-3.3); Glucose 66 mg/dL (70-110); Potassium 4.1 mmol/L (3.5-5.5); Sodium 136 mmol/L (135-145); Total Bilirubin 0.5 mg/dL (0.3-1.2); Total Protein 5.9 g/dL (6.2-8.2)
--- NOTE | 2023-11-29 13:45 | P.PN ---
Subjective Progress Note Date: 11/29/23 CHIEF COMPLAINT: GI bleed HISTORY OF PRESENT ILLNESS: The patient is a 23-year-old male with complicated history of perforated diverticulitis 2 years ago at the age of 21 with subsequent end colostomy. Patient reports having intermittent lower abdominal cramps with bleeding in his ostomy. Presented to the emergency room's with moderate severe lower abdominal pain with blood in his stool. Patient has not had a prior upper endoscopy. He is taking 800 mg ibuprofen regularly. Last colonoscopy was earlier in the year. Patient is not being followed by a GI provider. Patient wishes to have his ostomy reversed. He has been n.p.o. since yesterday. ROS: No fevers or chills. No new chest pain. No productive sputum PHYSICAL EXAM: VITAL SIGNS: Reviewed CONSTITUTIONAL: Well developed and in no acute distress. EYES: Conjuctivae without sclera icterus. Extraocular movements grossly intact. HEAD, EARS, NOSE, THROAT: Moist buccal mucosa. Head is atraumatic, normocephalic. Hears conversational speech. No nasal drainage. RESPIRATORY: Non-labored respirations and equal bilateral excursions. CARDIOVASCULAR: Palpable 2+ radial pulses. ABDOMEN: Ostomy with blood in stool. Liquid stools identified. Tender lower abdomen. No peritonitis MUSCULOSKELETAL: No gross deformity of the lower extremities noted. No clubbing. No cyanosis. SKIN: Good skin turgor. Well perfused. NEUROLOGIC: Cranial nerves II through XII grossly intact. No focal or lateralizing signs. PSYCH: Appropriate affect. Alert and oriented to person, place and time. CLINICAL LABS: Reviewed. WBC elevated over 12,000 up from 10,000, new leukocytosis. Hemoglobin down 14.8-13.4. ASSESSMENT: 1. Gastrointestinal bleed with diverticular disease 2. Blood through ostomy 3. History of ibuprofen use with GI PLAN: 1. Patient has new leukocytosis and will start Zosyn for diverticulitis 2. Recommend upper endoscopy due to GI bleed and chronic ibuprofen use with blood in ostomy 3. Outpatient referral to colorectal specialist also described and reviewed for potential ostomy reversal and further workup of his GI disease 4. Start Bentyl 20 mg scheduled 4 times daily 5. Discontinue ibuprofen 6. Low fiber diet 7. Start Protonix 40 mg twice daily Objective - Vital Signs Vital signs: Vital Signs Temp 98.5 F 11/29/23 07:36 Pulse 84 11/29/23 07:36 Resp 17 11/29/23 07:36 BP 112/61 11/29/23 07:36 Pulse Ox 95 11/29/23 07:36 FiO2 Intake & Output 11/28/23 11/29/23 11/29/23 18:59 06:59 18:59 Weight 68.039 kg 68.039 kg Other: # Voids 1 - Labs CBC & Chem 7: 11/29/23 03:52 11/29/23 03:52 Labs: Abnormal Lab Results - Last 24 Hours (Table) 11/28/23 11/29/23 11/29/23 Range/Units 13:44 03:52 03:52 WBC 12.76 H (4.50-10.00) X 10*3/uL Immature Gran # 0.09 H (0.00-0.04) X 10*3/uL Neutrophils # 9.22 H (1.80-7.70) X 10*3/uL Monocytes # 1.24 H (0.20-1.00) X 10*3/uL Eosinophils # 0.74 H (0.04-0.35) X 10*3/uL Anion Gap 14.30 H (4.00-12.00) mmol/L BUN 8.3 L (9.0-27.0) mg/dL BUN/Creatinine Ratio 9.22 L (12.00-20.00) Ratio Glucose 66 L (70-110) mg/dL Calcium 8.1 L (8.7-10.3) mg/dL Total Protein 5.9 L (6.2-8.2) g/dL Albumin 3.5 L (3.8-4.9) g/dL Albumin/Globulin Ratio 1.46 L (1.60-3.17) Ratio Urine Protein Trace H (Negative) Urine Ketones Trace H (Negative)
[2023-11-29] MEDS: DICYCLOMINE 20 MG TAB PO SCH (13:55)
[2023-11-29] MEDS: PIPERACILLIN-TAZOBACTAM 3.375 GM in SODIUM CHLORIDE 0.9% 100 ML IVPB SCH (13:55)
[2023-11-29] MEDS: SODIUM CHLORIDE 0.9% 2,000 ML IV ONE (13:56)
[2023-11-29] MEDS: PANTOPRAZOLE 40 MG/10 ML VIAL IVP SCH (14:01)
[2023-11-29] MEDS: ONDANSETRON 4 MG/2 ML VIAL IVP SCH (17:08)
[2023-11-30] MEDS ORDERED: PROPOFOL 10 MG/ML 20 ML VIAL IV ONE (09:28)
[2023-11-30] MEDS: IV FLUID CONTINUATION 1,000 ML IV ONE ×2 (09:30→09:44)
--- NOTE | 2023-11-30 09:55 | P.PCN ---
Date of Procedure: 11/30/23 Description of Procedure: PREOPERATIVE DIAGNOSIS: Acute gastrointestinal bleeding Bleeding through ostomy POSTOPERATIVE DIAGNOSIS: Acute gastrointestinal bleeding Acute gastritis with bleeding Acute diffuse ulcers in stomach with bleeding Acute duodenitis without bleeding OPERATION: Esophagogastroduodenoscopy with cold forcep biopsies, esophagus, antrum, duodenum SURGEON: Rabia Wyatt MD ANESTHESIA: MAC. INDICATIONS: The patient is a 23-year-old male who presents with gastrointestinal bleeding. He recently had colonoscopy through ostomy earlier this year. He has not had prior upper endoscopy for GI bleeding. Benefits and risks of the procedure were described. Informed consent was obtained. DESCRIPTION: The patient was brought into the endoscopy suite and laid in the left lateral decubitus position. An Olympus gastroscope was passed along the posterior oropharynx down to the distal esophagus where the squamocolumnar junction was encountered at 39 cm from the incisors. The stomach was entered and no bile reflux was found. Additional findings are listed below. The first through third portion of the duodenum was examined and unremarkable. Retroflexion of the scope confirmed Hill grade 2 lower esophageal valve. The squamocolumnar junction demonstrated LA grade B erosive esophagitis. The stomach was desufflated. The patient tolerated the procedure well. FINDINGS: Squamocolumnar junction 39 cm from the incisors. Diaphragmatic hiatus at 39 cm. Hill grade 2 lower esophageal valve. LA grade B erosive esophagitis. Biopsies obtained Multiple acute gastric ulcerations with signs of bleeding. Biopsies obtained Acute gastritis with signs of bleeding Acute duodenitis without bleeding. Biopsies obtained RECOMMENDATIONS: 1. Start Carafate 1 g twice daily 2. Start omeprazole 40 mg daily
[2023-11-30] MEDS: SUCRALFATE 1 GM TAB PO SCH (10:31)
[2023-11-30 14:16] VITALS: BP 121/71; PULSE 85; RESP 16; TEMP 99.1
--- NOTE | 2023-11-30 14:57 | P.DS ---
Providers Date of admission: 11/28/23 20:31 Expected date of discharge: 11/30/23 Attending physician: Ezequiel Reis DO Consults: 11/30/23 07:51 Consult Physician Routine Consulting Provider: Rabia Wyatt Consult Reason/Comments: gi bleed Do you want consulting provider notified?: Already Contacted Primary care physician: Alexandro Giron [facility] Course: Discharge diagnosis Acute gastrointestinal bleeding Acute gastritis with bleeding Acute diffuse ulcers in stomach with bleeding Acute duodenitis without bleeding Hospital course The patient is a 23-year-old male who presents with gastrointestinal bleeding. He recently had colonoscopy through ostomy earlier this year. He has not had prior upper endoscopy for GI bleeding. Patient status post EGD revealing acute gastritis with bleeding, acute diffuse ulcers in stomach with bleeding and acute duodenitis without bleeding. Patient is tolerating diet. He will be discharged home with Protonix and Bentyl. Patient educated to follow-up with colorectal surgeon Dr. Wright for potential ostomy reversal. Patient is tolerating diet. He is afebrile. He is up and ambulating. Pain is controlled. He is stable for discharge. Physician Environmental Technician note has been reviewed by physician. Signing provider agrees with the documented findings, assessment, and plan of care. Patient Condition at Discharge: Stable Plan - Discharge Summary Discharge Rx Participant: No New Discharge Prescriptions: New Dicyclomine [Bentyl] 20 mg PO QID #112 tab Sucralfate [Carafate] 1 gm PO AC-BID #60 tab Pantoprazole [Protonix] 40 mg PO DAILY #60 tab Discontinued Ibuprofen [Motrin] 800 mg PO Q8H PRN PRN Reason: Pain Dicyclomine [Bentyl] 10 mg PO QID PRN PRN Reason: Gi Upset Discharge Medication List Dicyclomine [Bentyl] 20 mg PO QID #112 tab 11/30/23 [Rx] Pantoprazole [Protonix] 40 mg PO DAILY #60 tab 11/30/23 [Rx] Sucralfate [Carafate] 1 gm PO AC-BID #60 tab 11/30/23 [Rx] Follow up Appointment(s)/Referral(s): Jaya Wright MD [REFERRING] - 1 Week Alexandro Giron DO [Primary Care Provider] - 12/07/23 8:15 am Activity/Diet/Wound Care/Special Instructions: No NSAID use such as Motrin, ibuprofen or naproxen Eat yogurt daily Follow-up with colorectal surgeon, Dr WRIGHT Discharge Disposition: HOME SELF-CARE
== END 2023-11-30 15:50 | disposition home or self-care (01) | DRG 378 ==
LOC: EC 10:58 → 4SSUR 20:31
PROVIDERS: ADMIT Surgery; ATTEND Surgery
PROC: 0DB78ZX Excision of Stomach, Pylorus, Via Natural or Artificial Opening Endoscopic, Diagnostic (ICD-10-PCS; principal; 2023-11-30 07:50)
PROC: 0DB58ZX Excision of Esophagus, Via Natural or Artificial Opening Endoscopic, Diagnostic (ICD-10-PCS; principal; 2023-11-30 07:50)
PROC: 0DB98ZX Excision of Duodenum, Via Natural or Artificial Opening Endoscopic, Diagnostic (ICD-10-PCS; principal; 2023-11-30 07:50)
DX: K25.0 Acute gastric ulcer with hemorrhage (principal); K22.10 Ulcer of esophagus without bleeding; F90.9 Attention-deficit hyperactivity disorder, unspecified type; F17.290 Nicotine dependence, other tobacco product, uncomplicated; K57.30 Diverticulosis of large intestine without perforation or abscess without bleeding; K29.80 Duodenitis without bleeding; Z28.310 Unvaccinated for COVID-19; Z88.0 Allergy status to penicillin; Z91.041 Radiographic dye allergy status; Z93.3 Colostomy status; Z86.14 Personal history of Methicillin resistant Staphylococcus aureus infection; Z79.899 Other long term (current) drug therapy; Z79.1 Long term (current) use of non-steroidal anti-inflammatories (NSAID); Z88.8 Allergy status to other drugs, medicaments and biological substances
CPT/HCPCS: 36415; 43239; 71275; 74177; 80053; 81001; 81003; 82150; 83690; 83735; 84484; 85025; 85379; 85610; 85730; 93005; 96361; 96374; 96375; 96376; 99285

== ENCOUNTER 2024-01-20 15:55 | Emergency (ER) | payer BC, OTHER ==
--- NOTE | 2024-01-20 16:30 | ED ---
Recheck HPI - General Source: patient, family, RN notes reviewed Mode of arrival: ambulatory Limitations: no limitations <Daya Kennedy - Last Filed: 01/20/24 16:28> <Sachin Reddy - Last Filed: 01/20/24 21:02> - General Chief Complaint: Recheck/Abnormal Lab/Rx Stated Complaint: abn labs Time Seen by Provider: 01/20/24 16:28 - History of Present Illness Initial Comments: Quick note: 23-year-old male presenting to the ER with a chief complaint of low hemoglobin. Patient has a history of a sigmoid resection and currently has an ostomy due to diverticulitis/bleeding ulcer. Patient is following up with a surgeon out of [facility], Dr. Warner. Patient has been having bleeding from his ostomy and is scheduled for Remicade infusion today. They were unable to establish IV access at clinic. Patient reports yesterday his hemoglobin was 7.1. Patient was sent here for blood transfusion. Patient is scheduled for iron infusion tomorrow and another blood transfusion on Thursday. Patient reports chronic pain. No acute complaints. (Daya Kennedy) - Related Data Home Medications Medication Instructions Recorded Confirmed Ferrous Sulfate [Feosol] 325 mg PO DAILY 01/20/24 01/20/24 HYDROcodone/APAP 5-325MG [[place] 1 tab PO DAILY PRN 01/20/24 01/20/24 5-325] Multivitamins, Thera [Multivitamin 1 tab PO DAILY 01/20/24 01/20/24 (formulary)] predniSONE 40 mg PO DAILY 01/20/24 01/20/24 Previous Rx's Medication Instructions Recorded Dicyclomine [Bentyl] 20 mg PO QID #112 tab 11/30/23 Pantoprazole [Protonix] 40 mg PO DAILY #60 tab 11/30/23 Sucralfate [Carafate] 1 gm PO AC-BID #60 tab 11/30/23 Allergies Allergy/AdvReac Type Severity Reaction Status Date / Time bee pollen Allergy Severe Swelling Verified 01/20/24 19:44 bee venom protein (honey bee) Allergy Severe Swelling Verified 01/20/24 19:44 Iodinated Contrast Media AdvReac Vomiting Verified 01/20/24 19:44 [Iodinated Contrast Media - Oral and] Penicillins AdvReac Vomiting Verified 01/20/24 19:44 steroids AdvReac Nausea & Uncoded 01/20/24 19:44 Vomiting & Diarrhea Review of Systems ROS Other: All systems not noted in ROS Statement are negative. <Daya Kennedy - Last Filed: 01/20/24 16:28> ROS Other: All systems not noted in ROS Statement are negative. <Sachin Reddy - Last Filed: 01/20/24 21:02> ROS Statement: Those systems with pertinent positive or pertinent negative responses have been documented in the HPI. Past Medical History Additional Past Medical History / Comment(s): Diverticulitis., abscess on bladder & lower right quadrant in abdomen-has MRSA infection, recently in [facility] for, PICC line for vanco. 02/2022 History of Any Multi-Drug Resistant Organisms: MRSA Date of last positivie culture/infection: abdomen MDRO Source:: December 2021 Past Surgical History: Bowel Resection Additional Past Surgical History / Comment(s): Colonoscopy., 08-13-20 sigmoidectomy @[facility], PICC line, colostomy feb 2022, Past Anesthesia/Blood Transfusion Reactions: No Reported Reaction, Motion Sickness Additional Past Anesthesia/Blood Transfusion Reaction / Comment(s): HAD COLONOSCOPY AND DID WELL WITH SEDATION. no blood transfusion Past Psychological History: ADD/ADHD Smoking Status: Vaper Past Alcohol Use History: None Reported Past Drug Use History: Marijuana - Past Family History Mother Family Medical History: No Reported History Father Family Medical History: No Reported History <Daya Kennedy - Last Filed: 01/20/24 16:28> General Exam Limitations: no limitations <Daya Kennedy - Last Filed: 01/20/24 16:28> General appearance: alert, in no apparent distress Head exam: Present: atraumatic, normocephalic Eye exam: Present: normal appearance, PERRL ENT exam: Present: normal exam Neck exam: Present: normal inspection. Absent: tenderness, meningismus Respiratory exam: Present: normal lung sounds bilaterally. Absent: respiratory distress, wheezes Cardiovascular Exam: Present: regular rate, normal rhythm Extremities exam: Present: normal inspection, normal capillary refill Neurological exam: Present: alert, oriented X3 Psychiatric exam: Present: normal affect, normal mood Skin exam: Present: warm, dry, intact, pallor <Sachin Reddy - Last Filed: 01/20/24 21:02> - General Exam Comments Initial Comments: Visual Physical Exam Vital signs reviewed General: Well-appearing, nontoxic, no acute distress. Head: Normocephalic, atraumatic Eyes: PERRLA, EOMI ENT: Airway patent Chest: Nonlabored breathing Skin: No visual rash, normal skin tone Neuro: Alert and oriented 3 Musculoskeletal: No gross abnormalities (Daya Kennedy) Course Vital Signs 01/20/24 01/20/24 01/20/24 16:02 17:50 19:43 Temperature 97.9 F 98 F Pulse Rate 91 87 77 Respiratory 18 16 16 Rate Blood Pressure 118/79 108/62 103/53 O2 Sat by Pulse 100 100 97 Oximetry 01/20/24 01/20/24 01/20/24 20:01 20:10 20:30 Temperature 98.1 F 98.4 F 98.5 F Pulse Rate 85 92 84 Respiratory 16 16 16 Rate Blood Pressure 108/68 108/61 105/52 O2 Sat by Pulse 97 98 98 Oximetry Medical Decision Making <Daya Kennedy - Last Filed: 01/20/24 16:28> - Lab Data Result diagrams: 01/20/24 17:14 01/20/24 17:14 <Sachin Reddy - Last Filed: 01/20/24 21:02> - Medical Decision Making I performed the quick note portion of this chart. Electronically signed by Daya Kennedy PA-C (Daya Kennedy) Was pt. sent in by a medical professional or institution ([facility], SECOND CLASS WELDER, urgent care, hospital, or senior care...) When possible be specific @ -No Did you speak to anyone other than the patient for history (EMS, parent, family, police, friend...)? What history was obtained from this source @ -No Did you review nursing and triage notes (agree or disagree)? Why? @ -I reviewed and agree with nursing and triage notes Were old charts reviewed (outside hosp., previous admission, EMS record, old EKG, old radiological studies, urgent care reports/EKG's, senior care records)? Report findings @ -No old charts were reviewed Differential Diagnosis: anemia secondary to inflammatory bowel disease and chronic GI loss EKG interpreted by me (3pts min.). @ -As above X-rays interpreted by me (1pt min.). @ -None done CT interpreted by me (1pt min.). @ -None done U/S interpreted by me (1pt. min.). @ -None done What testing was considered but not performed or refused? (CT, X-rays, U/S, labs)? Why? @ -None What meds were considered but not given or refused? Why? @ -None Did you discuss the management of the patient with other professionals (professionals i.e. , PA, SECOND CLASS WELDER, lab, RT, psych nurse, social media project manager, credit risk analytics manager, teacher, control officer, caser up)? Give summary @ -No Was smoking cessation discussed for >3mins.? @ -No Was critical care preformed (if so, how long)? @ -No Were there social determinants of health that impacted care today? How? (Homelessness, low income, unemployed, alcoholism, drug addiction, transportation, low edu. Level, literacy, decrease access to med. care, penitentiary, rehab)? @ -No Was there de-escalation of care discussed even if they declined (Discuss DNR or withdrawal of care, Hospice)? DNR status @ -No What co-morbidities impacted this encounter? (DM, HTN, Smoking, COPD, CAD, Can cer, CVA, ARF, Chemo, Hep., AIDS, mental health diagnosis, sleep apnea, morbid obesity)? @ -Inflammatory bowel disease Was patient admitted / discharged? Hospital course, mention meds given and route , prescriptions, significant lab abnormalities, going to OR and other pertinent info. @23-year-old male who presents with need for transfusion. Patient scheduled for iron transfusion tomorrow and initiation of Remicade on Thursday. He was sent in by his basket weaver with request for 1 unit of blood transfusion. Patient given 1 unit and stable for discharge. Undiagnosed new problem with uncertain prognosis? @ -No Drug Therapy requiring intensive monitoring for toxicity (Heparin, Nitro, In sulin, Cardizem)? @ -No Were any procedures done? @ -No Diagnosis/symptom? 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 @ -Chronic Uncomplicated (without systemic symptoms) or Complicated (systemic symptoms)? @ -Default Side effects of treatment? @ -No Exacerbation, Progression, or Severe Exacerbation? @ -No Poses a threat to life or bodily function? How? (Chest pain, [place], [place], pneumonia, PE, COPD, DKA, ARF, appy, cholecystitis, CVA, Diverticulitis, Homicidal, Suicidal, threat to staff... and all critical care pts) @ -No (Sachin Reddy) - Lab Data Lab Results 01/20/24 01/20/24 01/20/24 Range/Units 17:14 17:14 17:14 WBC 8.2 (3.8-10.6) k/uL RBC 2.99 L (4.30-5.90) m/uL Hgb 7.5 L D (13.0-17.5) gm/dL Hct 25.4 L (39.0-53.0) % MCV 85.0 (80.0-100.0) fL MCH 25.2 (25.0-35.0) pg MCHC 29.6 L (31.0-37.0) g/dL RDW 15.5 (11.5-15.5) % Plt Count 730 H (150-450) k/uL MPV 8.1 Neutrophils % 88 % Lymphocytes % 9 % Monocytes % 2 % Eosinophils % 1 % Basophils % 0 % Neutrophils # 7.2 (1.3-7.7) k/uL Lymphocytes # 0.7 L (1.0-4.8) k/uL Monocytes # 0.2 (0-1.0) k/uL Eosinophils # 0.1 (0-0.7) k/uL Basophils # 0.0 (0-0.2) k/uL Hypochromasia Marked Poikilocytosis Moderate PT 10.7 (10.0-12.5) sec INR 1.0 (<1.2) APTT 22.9 (22.0-30.0) sec Sodium 135 L (137-145) mmol/L Potassium 5.2 H (3.5-5.1) mmol/L Chloride 100 (98-107) mmol/L Carbon Dioxide 29 (22-30) mmol/L Anion Gap 6 mmol/L BUN 8 L (9-20) mg/dL Creatinine 0.63 L (0.66-1.25) mg/dL Est GFR (CKD-EPI)AfAm >90 (>60 ml/min/1.73 sqM) Est GFR (CKD-EPI)NonAf >90 (>60 ml/min/1.73 sqM) Glucose 117 H (74-99) mg/dL Calcium 8.4 (8.4-10.2) mg/dL Total Bilirubin 0.4 (0.2-1.3) mg/dL AST 25 (17-59) U/L ALT 10 (4-49) U/L Alkaline Phosphatase 53 (38-126) U/L Total Protein 7.0 (6.3-8.2) g/dL Albumin 3.6 (3.5-5.0) g/dL Blood Type Blood Type Recheck Bld Type Recheck Status Antibody Screen Crossmatch Spec Expiration Date 01/20/24 Range/Units 18:45 WBC (3.8-10.6) k/uL RBC (4.30-5.90) m/uL Hgb (13.0-17.5) gm/dL Hct (39.0-53.0) % MCV (80.0-100.0) fL MCH (25.0-35.0) pg MCHC (31.0-37.0) g/dL RDW (11.5-15.5) % Plt Count (150-450) k/uL MPV Neutrophils % % Lymphocytes % % Monocytes % % Eosinophils % % Basophils % % Neutrophils # (1.3-7.7) k/uL Lymphocytes # (1.0-4.8) k/uL Monocytes # (0-1.0) k/uL Eosinophils # (0-0.7) k/uL Basophils # (0-0.2) k/uL Hypochromasia Poikilocytosis PT (10.0-12.5) sec INR (<1.2) APTT (22.0-30.0) sec Sodium (137-145) mmol/L Potassium (3.5-5.1) mmol/L Chloride (98-107) mmol/L Carbon Dioxide (22-30) mmol/L Anion Gap mmol/L BUN (9-20) mg/dL Creatinine (0.66-1.25) mg/dL Est GFR (CKD-EPI)AfAm (>60 ml/min/1.73 sqM) Est GFR (CKD-EPI)NonAf (>60 ml/min/1.73 sqM) Glucose (74-99) mg/dL Calcium (8.4-10.2) mg/dL Total Bilirubin (0.2-1.3) mg/dL AST (17-59) U/L ALT (4-49) U/L Alkaline Phosphatase (38-126) U/L Total Protein (6.3-8.2) g/dL Albumin (3.5-5.0) g/dL Blood Type O Positive Blood Type Recheck O Pos Bld Type Recheck Status No Antibody Screen NEGATIVE Crossmatch See Detail Spec Expiration Date 01/23/2024 - 1829 Disposition <Daya Kennedy - Last Filed: 01/20/24 16:28> Is patient prescribed a controlled substance at d/c from ED?: No <Sachin Reddy - Last Filed: 01/20/24 21:02> Clinical Impression: Anemia Disposition: HOME SELF-CARE Condition: Fair Instructions (If sedation given, give patient instructions): Anemia (ED) Referrals: Alexandro Giron DO [Primary Care Provider] - 1-2 days
[2024-01-20 17:37] LABS: Basophils % (A) 0 %; Eosinophils # (A) 0.1 k/uL (0-0.7); Eosinophils % (A) 1 %; HCT 25.4 % (39.0-53.0); Hypochromasia Marked; Lymphocytes # (A) 0.7 k/uL (1.0-4.8); Lymphocytes % (A) 9 %; MCH 25.2 pg (25.0-35.0); MCHC 29.6 g/dL (31.0-37.0); Mean Platelet Volume 8.1; Monocytes # (A) 0.2 k/uL (0-1.0); Monocytes % (A) 2 %; Neutrophils # (A) 7.2 k/uL (1.3-7.7); Neutrophils % (A) 88 %; Platelet Count 730 k/uL (150-450); Poikilocytosis Moderate; RBC 2.99 m/uL (4.30-5.90); RDW 15.5 % (11.5-15.5); WBC 8.2 k/uL (3.8-10.6)
[2024-01-20 17:45] LABS: Partial Thromboplastin Time 22.9 sec (22.0-30.0); Prothrombin Time 10.7 sec (10.0-12.5)
[2024-01-20 17:55] LABS: HGB 7.5 gm/dL (13.0-17.5)
[2024-01-20 18:00] LABS: ALT 10 U/L (4-49); African American GFR (CKD) >90 (>60 ml/min/1.73 sqM); Albumin 3.6 g/dL (3.5-5.0); Anion Gap 6 mmol/L; Blood Urea Nitrogen 8 mg/dL (9-20); Calcium 8.4 mg/dL (8.4-10.2); Carbon Dioxide 29 mmol/L (22-30); Chloride 100 mmol/L (98-107); Glucose 117 mg/dL (74-99); Non-African American GFR(CKD) >90 (>60 ml/min/1.73 sqM); Sodium 135 mmol/L (137-145); Total Bilirubin 0.4 mg/dL (0.2-1.3)
[2024-01-20 18:29] LABS: Potassium 5.2 mmol/L (3.5-5.1)
[2024-01-20 18:30] LABS: AST 25 U/L (17-59); Alkaline Phosphatase 53 U/L (38-126)
[2024-01-20 18:58] VITALS: RESP 16
[2024-01-20 21:59] VITALS: BP 109/78; PULSE 71; TEMP 98.6
== END 2024-01-20 21:59 | disposition home or self-care (01) ==
LOC: EC 15:55
CPT/HCPCS: 36415; 36430; 80053; 85025; 85610; 85730; 86850; 86900; 86901; 86920; 99283

== ENCOUNTER 2024-12-01 17:44 | Emergency (ER) | payer BC, OTHER ==
[2024-12-01] MEDS ORDERED: NALOXONE 0.4 MG/ML 1 ML VIAL IV PRN (17:47)
[2024-12-01 17:53] VITALS: TEMP 98.1
[2024-12-01] MEDS ORDERED: SODIUM CHLORIDE 0.9% 1,000 ML IV SCH (18:00)
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
[2024-12-01 18:43] LABS: Basophils # (A) 0.06 10*3/uL (0.00-0.10); Basophils % (A) 1.0 %; Eosinophils # (A) 0.23 10*3/uL (0.04-0.35); Eosinophils % (A) 3.7 %; HCT 39.0 % (39.6-50.0); HGB 12.7 g/dL (13.0-17.0); Lymphocytes # (A) 1.84 10*3/uL (0.90-5.00); Lymphocytes % (A) 29.8 %; MCH 26.1 pg (27.0-32.0); MCHC 32.6 g/dL (32.0-37.0); MCV 80.2 fL (80.0-97.0); Monocytes # (A) 0.53 10*3/uL (0.20-1.00); Monocytes % (A) 8.6 %; Neutrophils # (A) 3.51 10*3/uL (1.80-7.70); Neutrophils % (A) 56.9 %; Platelet Count 280 10*3/uL (140-440); RBC 4.86 10*6/uL (4.40-5.60); RDW 18.1 % (11.5-14.5); WBC 6.17 10*3/uL (4.50-10.00)
[2024-12-01 18:52] LABS: INR 1.1 (<1.2); Partial Thromboplastin Time 25.1 sec (22.0-30.0); Prothrombin Time 11.7 sec (10.0-12.5)
[2024-12-01 18:55] LABS: Carbon Dioxide 22 mmol/L (22-30); Chloride 105 mmol/L (98-107); Glucose 79 mg/dL (74-99); Potassium 4.1 mmol/L (3.5-5.1); Sodium 141 mmol/L (137-145)
[2024-12-01 18:56] LABS: ALT 18 U/L (4-49); AST 29 U/L (17-59); African American GFR (CKD) >90 (>60 ml/min/1.73 sqM); Albumin 4.6 g/dL (3.5-5.0); Alkaline Phosphatase 67 U/L (38-126); Anion Gap 14 mmol/L; Blood Urea Nitrogen 19 mg/dL (9-20); Calcium 9.0 mg/dL (8.4-10.2); Non-African American GFR(CKD) >90 (>60 ml/min/1.73 sqM); Total Protein 7.3 g/dL (6.3-8.2)
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
[2024-12-01 20:02] LABS: Barbiturate Screen,Urine Not Detected (NotDetected); Benzodiazepines Screen,Urine Not Detected (NotDetected); Opiate Screen,Urine Not Detected (NotDetected); Oxycodone Screen, Urine Not Detected (NotDetected); Phencyclidine Screen,Urine Not Detected (NotDetected); Tricyclic Antidepressant,Urine Not Detected (NotDetected); Urn Cannabinoid Scrn Detected (NotDetected)
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
[2024-12-01] MEDS: ACET/COD 300 MG/30 MG STARTER PACK TAB BTL PO STA (20:54)
[2024-12-01 21:03] VITALS: BP 123/82; PULSE 71; RESP 16
== END 2024-12-01 21:03 | disposition home or self-care (01) ==
LOC: EC 17:44
DX: S63.213A Subluxation of metacarpophalangeal joint of left middle finger, initial encounter (principal); F17.290 Nicotine dependence, other tobacco product, uncomplicated; Z88.0 Allergy status to penicillin; Z91.030 Bee allergy status; Z91.041 Radiographic dye allergy status; V89.2XXA Person injured in unspecified motor-vehicle accident, traffic, initial encounter; Y92.410 Unspecified street and highway as the place of occurrence of the external cause
CPT/HCPCS: 36415; 70450; 71045; 72125; 73502; 80053; 80306; 80320; 83605; 84484; 85025; 85610; 85730; 86850; 86900; 86901; 93005; 99285